=== PATIENT | female | born 1950 | race Hispanic/Latino ===

== ENCOUNTER → 2024-03-20 17:44 | Outpatient (REF) | payer MEDICARE, OTHER, SELFPAY | LOC: PAVMRI 17:44 | PROVIDERS: ATTENDING PHYSICIAN Orthopaedic Surgery; FAMILY PHYSICIAN Family Medicine | DX: M17.11 Unilateral primary osteoarthritis, right knee (principal) | CPT/HCPCS: 73721 ==

== ENCOUNTER → 2024-05-31 11:12 | Outpatient (REF) | payer MEDICARE, OTHER, SELFPAY | LOC: HWRAD 11:12 | PROVIDERS: ATTENDING PHYSICIAN Family Medicine | DX: R55 Syncope and collapse (principal); R07.89 Other chest pain; R00.0 Tachycardia, unspecified | CPT/HCPCS: 93880 ==

== ENCOUNTER → 2024-06-01 08:47 | Outpatient (REF) | payer MEDICARE, OTHER, SELFPAY | LOC: RCS 08:47 | PROVIDERS: ATTENDING PHYSICIAN Family Medicine | DX: R55 Syncope and collapse (principal) | CPT/HCPCS: 93225; 93226 ==

== ENCOUNTER → 2024-06-07 14:50 | Outpatient (REF) | payer MEDICARE, OTHER, SELFPAY | LOC: HWRCS 14:50 | PROVIDERS: ATTENDING PHYSICIAN Family Medicine | DX: R07.89 Other chest pain (principal) | CPT/HCPCS: 93306 ==

== ENCOUNTER → 2024-06-28 12:18 | Outpatient (REF) | payer MEDICARE, OTHER, SELFPAY | LOC: HWEVLT 12:18 | PROVIDERS: ATTENDING PHYSICIAN Radiology Vascular & Interventional Radiology | DX: I83.893 Varicose veins of bilateral lower extremities with other complications (principal) | CPT/HCPCS: 93970 ==

== ENCOUNTER → 2024-07-03 15:20 | Outpatient (REF) | payer MEDICARE, OTHER, SELFPAY | LOC: RCS 15:20 | PROVIDERS: ATTENDING PHYSICIAN Internal Medicine Cardiovascular Disease; FAMILY PHYSICIAN Family Medicine | DX: I63.9 Cerebral infarction, unspecified (principal); I95.1 Orthostatic hypotension; I45.81 Long QT syndrome | CPT/HCPCS: 93306 ==

== ENCOUNTER 2024-07-21 04:14 | Inpatient (IN) | payer MEDICARE, OTHER, SELFPAY ==
[2024-07-20 22:33] VITALS: BP 146/84
[2024-07-20 23:00] LABS: % Basophils 0.1 % (0-2); % Eosinophils 1.6 % (0-6); % Immature Granulocytes 0.5 % (0-0.5); % Lymphocytes 15.1 % (20.5-51.1); % Monocytes 5.5 % (1.7-9.3); % Neutrophils 77.2 % (42.2-75.2); Absolute Eosinophils 0.1 10^3/uL (0-0.7); Absolute Lymphocytes 1.1 10^3/uL (1.2-3.4); Absolute Monocytes 0.4 10^3/uL (0.1-0.6); Absolute Neutrophils 5.8 10^3/uL (1.4-6.5); Hematocrit 32.9 % (37.0-47.0); Hemoglobin 11.1 g/dL (12.0-16.0); Mean Corp Hgb Conc. 33.7 g/dL (33.0-37.0); Mean Corpuscular Hgb 30.8 pg (27.0-31.0); Mean Corpuscular Volume 91.4 fL (81.0-99.0); Mean Platelet Volume 8.6 fL (7.4-10.4); Nucleated Red Blood Cells % 0 %; Platelet Count 288 10^3/uL (130-400); Red Cell Dist. Width 13.6 % (11.5-14.5); White Blood Cell Count 7.5 10^3/uL (4.8-10.8)
[2024-07-20 23:22] LABS: Troponin I < 0.012 ng/ml
[2024-07-20] MEDS: ZOFRAN 4 MG IV (23:24)
[2024-07-20] MEDS: DILAUDID 1 MG IV (23:26)
[2024-07-20] MEDS: NSS 1000 IV (23:27)
[2024-07-20 23:29] VITALS: BMI 24.3
--- NOTE | 2024-07-20 23:35 | ED.GENMED ---
History of Present Illness
General
Chief Complaint: Abdominal Symptoms
Time Seen by Provider: 07/20/24 23:06
History of Present Illness
History of Present Illness:
74-year-old female with history of paraesophageal hernia status post fundoplication, pancreatitis, GERD, fibromyalgia presenting to the emergency department for generalized abdominal pain. Patient reports symptoms started around 7 PM and have been
worsening since onset. Reports associated nausea without vomiting. Last bowel movement was yesterday. Denies additional surgeries to her abdomen other than the surgery for the hernia which was several years ago. Denies chest pain or difficulty
breathing. Denies urinary complaints. Pain has been worsening since onset, reports that it is traveling all across her abdomen. No additional history obtained at this time
Past History
Past History
ED Past Medical History: CVA (Slight left hand weakness), Fibromyalgia, GERD, Hypercholesterolemia, Seizures and Other (DVT, dysphagia, very large hiatal hernia, nephrolithiasis, anemia, chickenpox, measles)
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 Hernia repair, left breast lumpectomy 1999, hernia repair)
Patient has exhibited threatening behavior?: No
PSI?: No
Social History
Tobacco: Non-smoker
Alcohol: None
Drug: None
Personal: Single
Living: alone
Employment: Disabled
Family History
Family History: Other (Reviewed and noncontributory)
Phy Exam
Physical Exam
Physical Exam:
General: Mild dryness to her mucous membranes. Uncomfortable secondary to pain
HEENT: protecting airway
Neck: appears supple
CV: Normal heart rate, regular rhythm
Resp: No accessory muscle use, no increased work of breathing, lungs clear to auscultation bilaterally
Abd: Mild distention with diffuse abdominal tenderness and voluntary guarding
Extremities: No deformities, no swelling
Neuro: alert, no focal neurologic deficit
: deferred
Rectal: deferred
Psych: Normal affect
Skin: Intact
Course
Orders/Labs/Results
Orders:
Orders
07/20/24 22:31
Electrocardiogram (*1) Urgent
Reason for Study: Abdominal Pain
EKG- Treatment ONCE
07/20/24 22:47
Complete Blood Count/With Diff Urgent
Comprehensive Metabolic Panel Urgent
Lipase Urgent
Troponin I Urgent
07/20/24 23:16
0.9% Sodium Chloride 1000 ml [Nss] 1,000 ml IV BOLUS
HYDROmorphone [Dilaudid] 1 mg IV NOW STA
Ondansetron Injectable [Zofran] 4 mg IV NOW STA
07/21/24 00:02
CT Abd/pelvis W Iv Cont Urgent
Reason For Exam: diffuse abdominal pain w/ guarding
07/21/24 00:09
HYDROmorphone [Dilaudid] 1 mg IV NOW STA
07/21/24 01:45
Lactic Acid Q4H
Comment: CANCEL 2nd LACTIC ACID IF 1st LACTIC ACID IS LESS THAN 2
07/21/24 01:49
0.9% Sodium Chloride 1000 ml [Nss] 1,000 ml IV BOLUS
HYDROmorphone [Dilaudid] 1 mg IV NOW STA
07/21/24 05:45
Lactic Acid Q4H
Comment: CANCEL 2nd LACTIC ACID IF 1st LACTIC ACID IS LESS THAN 2
Abnormal Lab Results
07/20/24
22:47
RBC 3.60 L 10^6/uL
(4.20-5.40)
Hgb 11.1 L g/dL
(12.0-16.0)
Hct 32.9 L %
(37.0-47.0)
Absolute Lymphs (auto) 1.1 L 10^3/uL
(1.2-3.4)
Neutrophils % 77.2 H %
(42.2-75.2)
Lymphocytes % 15.1 L %
(20.5-51.1)
BUN 18 H mg/dl
(7-17)
Glucose 121 H mg/dl
(70-99)
AST 40 H U/L
(14-36)
07/20/24 22:47
07/20/24 22:47
Vital Signs
Initial and Last Documented VS:
Initial Vital Signs
Temp Pulse Resp BP Pulse Ox
98.3 F 90 18 146/84 93
07/20/24 22:33 07/20/24 22:33 07/20/24 22:33 07/20/24 22:33 07/20/24 22:33
Last Documented Vital Signs
Temp Pulse Resp BP Pulse Ox
98.3 F 90 18 146/84 93
07/20/24 22:33 07/20/24 22:33 07/20/24 22:33 07/20/24 22:33 07/20/24 22:33
MDM/Problems Addressed
MDM/Problems Addressed:
74-year-old female with history of paraesophageal hernia status post fundoplication, pancreatitis, GERD, fibromyalgia presenting to the emergency department for worsening generalized abdominal pain. Vital signs on arrival are normal.
On exam patient is in no acute distress, however is uncomfortable secondary to pain, diffuse tenderness to the abdomen with voluntary guarding. Concern for acute intra-abdominal process. Differential considerations include pancreatitis versus
diverticulitis, prior history. Possible complicating features such as perforation given patient's discomfort and guarding. For this reason we will obtain laboratory analysis and CT abdominal imaging. Dilaudid, Zofran, fluids administered for
patient's symptoms.
02:00 -CT is consistent with a cecal volvulus with small amount of free fluid. Discussed with general surgery on-call, Dr. Dwayne Burleson. Advises n.p.o. status, will put on schedule for OR this morning. Will continue with pain control. He
will order preop antibiotics. Plan for admission
*Critical Care Note
Total Time (30-74mins, 75-104mins- exclusive of procedures): Not Applicable
ED Attending Note
-
Portions of this chart may have been created with voice recognition software.� Occasional wrong word or��sound alike� substitutions may have occurred due to the inherent limitations of voice recognition software.
Discharge Plan
Departure
Prescriptions:
No Action
cyanocobalamin (vitamin B-12) 1,000 mcg Tablet
1,000 mcg PO DAILY Qty: 0 0RF
rosuvastatin 20 mg Tablet
40 mg PO QPM Qty: 60 0RF
acetaminophen 500 mg Tablet
1,000 mg PO TID PRN (Reason: pain) Qty: 10 0RF
ferrous sulfate 325 mg (65 mg iron) tablet,delayed release (DR/EC)
325 mg PO DAILY AT 0700
cyclobenzaprine 5 mg Tablet
5 mg PO BID
tramadol 50 mg Tablet
50 mg PO TID PRN (Reason: severe pain)
simethicone 80 mg Tablet,Chewable
80 mg PO QIDPRN PRN (Reason: crampy abdo pain) Qty: 28 0RF
amoxicillin-pot clavulanate 875-125 mg tablet
1 tab PO BID Qty: 14 0RF
oxycodone 5 mg tablet
5 mg PO Q4H PRN (Reason: MOD TO SEVERE PAIN) Qty: 14 0RF
meloxicam 7.5 mg tablet
7.5 mg PO DAILY Qty: 14 0RF
Referrals:
UNKNOWN - PT NOT,INTERVIEWE [Family Provider] -
Interventions
Interventions:
*Risk Screen - Suicide Last Done: 07/20/24 22:30
*General Assessment Last Done: 07/20/24 22:30
*Neglect/Abuse Screening Last Done: 07/20/24 22:30
*ED COVID-19 Vaccine History Last Done: 07/20/24 22:30
LR-Fucnen-[id number] Assessment Last Done: 07/20/24 22:30
Discharge Date and Time
Print Language: THAI
[2024-07-20 23:40] LABS: ALT (SGPT) 30 U/L (0-35); AST (SGOT) 40 U/L (14-36); Albumin 4.8 g/dl (3.5-5.0); Alkaline Phosphatase 69 U/L (38-126); Blood Urea Nitrogen 18 mg/dl (7-17); Calcium 8.8 mg/dl (8.4-10.2); Carbon Dioxide 30 mmol/L (22-30); Chloride 99 mmol/L (98-107); Estimated Creatinine Clearance 65 ml/min; Glucose 121 mg/dl (70-99); Lipase 96 U/L (23-300); Potassium 3.9 mmol/L (3.5-5.1); Sodium 141 mmol/L (135-145); Total Bilirubin 0.7 mg/dl (0.2-1.3); Total Protein 7.5 g/dl (6.3-8.2); eGFR > 60.00
[2024-07-21] VITALS (29 sets, daily range): BP systolic 119–162; BP diastolic 57–96; BMI 22.8
[2024-07-21] MEDS: DILAUDID 1 MG IV ×3 (00:16→03:08)
[2024-07-21] MEDS: NSS 1000 IV (02:00)
[2024-07-21 02:22] LABS: Lactic Acid 0.7 mmol/L (0.7-2.0)
--- NOTE | 2024-07-21 03:54 | HPS.HSE ---
Family Physician
-
Family Physician: INTERVIEWE UNKNOWN - PT NOT
Chief Complaint
-
Abd Pain
History of Present Illness
Patient is a 74y F with PMH significant for fibromyalgia and chronic pain who presents to ED complaining of abdominal pain. Patient states that she ate lunch today around 4 PM and her pain started shortly thereafter. She initially noted pain in
the RUQ area which has since spread to involve the entire abdomen. She reports nausea without emesis. She notes pain that has steadily increased in intensity throughout the day. This evening, she took some baking soda and water at home and her
pain significantly increased. 911 was called and patient was brought to the ED for further evaluation.
Imaging done in the ED demonstrates a cecal volvulus.
Patient reports long history of intermittent abdominal discomfort which she has always attributed to her fibromyalgia. Typically these episodes improve with her usual pain management strategies and time.
She states that she has never had an episode this severe.
Medical History
Past Medical History
Past Medical History: Reports Other
Additional Past Medical History:
Fibromyalgia
Dyslipidemia
Varicose Veins / Superficial Thrombophlebitis
Hiatal Hernia / GERD
Seizure +/- CVA (10/2022)
L Wrist Drop / L Hand Weakness secondary to the above
Past Surgical History: Reports Other
Additional Past Surgical History:
HH Repair / Fundoplication
Lumbar Laminectomy
Social History
Tobacco: Non-smoker
Alcohol: Occasional
Drug: None
Family History
Family History: Other (Mother: Cereberal Hemorrhage x 2, Varicose Veins)
Allergies / Home Medications
Allergies reflects when Allergies were last updated in [facility].
Home Medications with original date entered in [facility]
Allergy/Medication List:
Allergies
Allergy/AdvReac Type Severity Reaction Status Date / Time
codeine Allergy LETHARGY Verified 04/04/23 00:46
Home Medications
rosuvastatin 20 mg tablet 40 mg (2 x 20 mg) PO QPM #60 tabs 11/03/22
cyclobenzaprine 5 mg tablet 5 mg PO TID Muscle Spasms 04/04/23
tramadol 50 mg tablet 50 mg PO TID PRN severe pain 04/09/23
pantoprazole 40 mg tablet,delayed release 40 mg PO DAILY 07/21/24
Review of Systems
-
History Source: Patient
A 12 point ROS was completed and negative except as noted: Yes
Constitutional: Reports Fatigue; Denies Fever or Chills
EENT: Denies Sore Throat
Respiratory: Denies Cough or Trouble Breathing
Cardiac: Denies Chest Pain or Palpitations
Abdomen/GI: Reports Abdominal Pain and Nausea; Denies Vomiting, Diarrhea, Constipated, Bloody Stools, Black Stools or Anorexia
: Denies Dysuria, Frequency or Flank Pain
Musculoskeletal: Denies Joint Pain or Edema
Neurological: Denies Dizzy or Headache
Psych: Denies Depression or Anxiety
Physical Exam
Vital Signs
Vital Signs
Temp Pulse Resp BP Pulse Ox
98.3 F 105 34 133/92 97
07/20/24 22:33 07/21/24 02:15 07/21/24 02:15 07/21/24 00:07 07/21/24 02:15
Physical Exam
General: Other (74y F in mild distress due to abdominal pain.)
HEENT: PERRLA and Other (Dry MM.)
Respiratory: Clear; No Wheezes, Rales or Rhonchi
Cardiac: S1/S2, Regular Rhythm and Murmur (II/ ITA)
GI: Other (Abdomen is distended and diffusley tender. Pos voluntary guarding. Bowel sounds are diminished.)
Musculoskeletal: No Clubbing, No Cyanosis and No Edema
Neuro: AO x 3
Laboratory Results
-
07/20/24 22:47
07/20/24 22:47
Laboratory Results
Lactic Acid Cancelled 07/21/24 05:45
Total Bilirubin 0.7 mg/dl (0.2-1.3) 07/20/24 22:47
AST 40 U/L (14-36) H 07/20/24 22:47
ALT 30 U/L (0-35) 07/20/24 22:47
Alkaline Phosphatase 69 U/L (38-126) 07/20/24 22:47
Troponin I < 0.012 ng/ml 07/20/24 22:47
Lipase 96 U/L (23-300) 07/20/24 22:47
Impression/Plan
-
A/P: Patient is a 74y F with PMH significant for GERD / HH s/p fundoplication, fibromyalgia and chronic pain who presents to ED complaining of abdominal pain.
Cecal Volvulus
- Admit for further evaluation and treatment.
- NPO, pain control, IVFs, etc.
- Colorectal Surgery notified and plan is for surgery this AM for repair.
- Post-op care per Surgical team.
- Follow for clinical improvement.
Hiatal Hernia s/p Fundoplication
Esophageal Stenosis
- Patient notes some recent issues with swallow dysfunction / food getting 'stuck'.
- Follow for any new / worsening symptoms once able to take POs / after surgery.
- Continue daily PPI.
Fibromyalgia
- Patient states this is managed with tramadol and cyclobenzaprine at home.
- Not on any fibromyalgia-specific agents.
- Monitor for any increased pain, etc during stay.
DVT Prophylaxis: SCDs
Code Status: Full
--- NOTE | 2024-07-21 05:58 | PTCARENOTE ---
pt admitted to [facility]- immediately called to or- dr bell at bedside- francy meredith [id number]- as much of admission done as possible- periop teaching done by RN and Dr Bell
--- NOTE | 2024-07-21 06:10 | PTCARENOTE ---
pt taken to or - report given
--- NOTE | 2024-07-21 06:12 | CON.CRS ---
Consultation
-
Date/Time Consultation Requested: 07/21/24 @ 5:29
Date/Time Consultation Performed: 07/21/24 @ 2:00
Requesting Provider: Manuelito Adkins DO
Performing Provider: Dwayne Burleson MD
Reason for Consultation: Cecal Volvulus
Medical History
-
Chief Complaint: Abdominal pain
History of Present Illness:
74-year-old female known to me with a history of sigmoid diverticulitis, who presented to the ED last evening with the acute onset of abdominal pain. She has fibromyalgia and chronic pain but shortly after eating lunch she developed intense diffuse
pain at approximately 4 PM. Was initially in the right lower quadrant and now involves entire abdomen. She has some nausea but no vomiting, fevers or chills. She has a history of regular bowels has not passed anything since yesterday. A
colonoscopy in 2021 revealed an elongated, tortuous colon and left-sided diverticular disease. Her only past abdominal surgery was a paraesophageal hernia repair.
Past Medical History
Past Medical History: CVA (2022), GERD, Seizures and Other (Fibromyalgia, varicose veins)
Past Surgical History: Orthopedic (Lumbar laminectomy) and Other (Fundoplication)
Social History
Tobacco: Non-Smoker
Alcohol: Occasional
Drug: None
Personal: Single
Family History
Family History: Reviewed & Not Pertinent
Allergies / Home Medications
Allergy/AdvReac Type Severity Reaction Status Date / Time
codeine Allergy LETHARGY Verified 04/04/23 00:46
�Medication �Instructions �Recorded �Confirmed �Type
rosuvastatin 20 mg tablet 40 mg (2 x 20 mg) PO QPM #60 tabs 11/03/22 07/21/24 Rx
cyclobenzaprine 5 mg tablet 5 mg PO TID Muscle Spasms 04/04/23 07/21/24 History
tramadol 50 mg tablet 50 mg PO TID PRN severe pain 04/09/23 07/21/24 History
pantoprazole 40 mg tablet,delayed 40 mg PO DAILY 07/21/24 07/21/24 History
release
Review of Systems
-
History Source: Patient
All other systems: Negative unless noted
A 10 point review of systems was completed, and was negative except as per HPI.
Physical Exam
Vital Signs
Temp 98.7 F 07/21/24 05:50
Pulse 100 07/21/24 06:00
Resp Rate 15 07/21/24 06:00
Blood pressure 162/96 07/21/24 05:40
SaO2 94 07/21/24 06:00
07/19/24 07/20/24 07/21/24
06:59 06:59 06:59
Actual Weight 56.5 kg
Body Mass Index (BMI) 22.8
Lab Results / Allergies
WBC 7.5 10^3/uL (4.8-10.8) 07/20/24 22:47
Hgb 11.1 g/dL (12.0-16.0) L 07/20/24 22:47
Hct 32.9 % (37.0-47.0) L 07/20/24 22:47
Plt Count 288 10^3/uL (130-400) 07/20/24 22:47
Abs Immat Gran (auto) 0.0 10^3/uL (0-0.05) 07/20/24 22:47
Neutrophils % 77.2 % (42.2-75.2) H 07/20/24 22:47
Allergy/AdvReac Type Severity Reaction Status Date / Time
codeine Allergy LETHARGY Verified 04/04/23 00:46
Physical Exam
General: Well Developed, Well Nourished and Other (Uncomfortable and holding her abdomen)
HEENT: Anicteric
Respiratory: Clear
Cardiac: Regular Rhythm
GI: Soft, Tender (No peritoneal signs; tympany present throughout) and Distended
Skin: Warm
Neuro: Awake and Alert
Psych: Calm
Data Reviewed
-
CT Scan: Image Personally Visualized and interpreted, Report Reviewed by me, Discussed with Nurse and Discussed with Patient
Labs: Labs Reviewed by me, Discussed with Nurse and Discussed with Patient
Assessment / Plan
-
Cecal volvulus
I reviewed the current findings and treatment options. I explained that colonic detorsion is usually unsuccessful as surgery is recommended before a perforation. Without treatment the cecum will continue to distend and rupture causing sepsis.
Surgery is performed in open fashion and involves the resection of the right colon including the appendix. If the bowel is viable a cecopexy can be considered with the recurrence rate is often higher when compared to resection. Risks of resection
include, but are not limited to, bleeding, infection, adhesions, hernias, recurrence, and anastomotic leak (which could require further surgery), injury other structures, DVT, cardiopulmonary complications, CVA, and even . I reviewed the
typical recovery both in and out of the hospital as well as the functional results. All questions answered and she wishes to proceed. Informed consent obtained and arrangements are in progress with the operating room.
--- NOTE | 2024-07-21 07:53 | SUR.PHASEI ---
Rec'd sleepy in bed with HOB elevated low fowlers, oriented x3, reassured carrillo to bds cl yellow urine
--- NOTE | 2024-07-21 08:04 | SUR.PHASEI ---
More alert, occ moist no prod cough noted encouraged to hold abd, hug pillow given , pillow uncder knees, chris well
[2024-07-21] MEDS: TORADOL 15 MG IV ×3 (08:31→19:49)
[2024-07-21] MEDS: DILAUDID 0.5 MG IV ×5 (08:34→21:49)
[2024-07-21] MEDS: LR 1000 IV ×2 (08:50→18:54)
[2024-07-21] MEDS: DILAUDID 0.25 MG IV (08:51)
[2024-07-21] MEDS: NSS (PRESERVATIVE FREE) 10 ML IV (09:03)
[2024-07-21] MEDS: PROTONIX IV 40 MG IV (09:03)
[2024-07-21 09:05] LABS: Hematocrit 30.3 % (37.0-47.0); Hemoglobin 10.1 g/dL (12.0-16.0); Mean Corp Hgb Conc. 33.3 g/dL (33.0-37.0); Mean Corpuscular Hgb 32.1 pg (27.0-31.0); Mean Corpuscular Volume 96.2 fL (81.0-99.0); Mean Platelet Volume 8.5 fL (7.4-10.4); Platelet Count 248 10^3/uL (130-400); Red Blood Cell Count 3.15 10^6/uL (4.20-5.40); Red Cell Dist. Width 13.7 % (11.5-14.5); White Blood Cell Count 6.3 10^3/uL (4.8-10.8)
[2024-07-21 09:23] LABS: Blood Urea Nitrogen 10 mg/dl (7-17); Calcium 8.1 mg/dl (8.4-10.2); Carbon Dioxide 29 mmol/L (22-30); Chloride 102 mmol/L (98-107); Estimated Creatinine Clearance 65 ml/min; Glucose 110 mg/dl (70-99); Potassium 3.5 mmol/L (3.5-5.1); Sodium 143 mmol/L (135-145); eGFR > 60.00
--- NOTE | 2024-07-21 09:29 | PTCARENOTE ---
Pt received from PACU. Oriented X3, drowsy. VSS. Sating mid 90's on 2L NC. Midline abdominal dressing with scant drainage, marked by PACU nurse. IVF infusing as ordered. Call giang within reach.
--- NOTE | 2024-07-21 09:49 | W.PN.HOSP.TC ---
Today's Communication/Plan
-
see bold
Assessment / Plan
Assessment / Plan
74y F with PMH significant for GERD / HH s/p fundoplication, fibromyalgia and chronic pain who presents to ED complaining of abdominal pain.
Gen: NAD, AAOx3.
Eyes: EOMI, PERRLA, no scleral icterus.
Neck: supple.
CV: RRR, +S1/S2, no m/r/g.
Resp: CTAB, no rales, wheezes, or rhonchi.
Abd: hypoactive BS, soft, NT to light palpation, ND
Skin: No rashes.
Neuro: CN 2-12 intact, non-focal.
Psych: Normal mood and affect.
Cecal Volvulus
-s/p OR this AM by CRS
-NPO, pain control, IVFs
Hiatal Hernia s/p Fundoplication
Esophageal Stenosis
- Patient notes some recent issues with swallow dysfunction / food getting 'stuck'.
- Follow for any new / worsening symptoms once able to take POs / after surgery.
- Continue daily PPI.
Fibromyalgia
- Patient states this is managed with tramadol and cyclobenzaprine at home.
- Not on any fibromyalgia-specific agents.
- Monitor for any increased pain, etc during stay.
FULL/SCDs
Anticipated Discharge: > 48 hours
Subjective/Interval History
-
Date of Service: July 21, 2024
No new complaints.
Objective Data
-
Labs:
Laboratory Results
07/20/24 07/21/24
22:47 08:47
WBC 7.5 6.3
Hgb 11.1 L 10.1 L
Hct 32.9 L 30.3 L
Plt Count 288 248
Sodium 141 143
Potassium 3.9 3.5
Chloride 99 102
Carbon Dioxide 30 29
BUN 18 H 10
Creatinine 0.6 0.5 L
Glucose 121 H 110 H
Calcium 8.8 8.1 L
Total Bilirubin 0.7
AST 40 H
ALT 30
Alkaline Phosphatase 69
Vital Signs:
Vital Signs
Temp Pulse Resp BP Pulse Ox
99.5 F 99 16 124/76 96
07/21/24 09:00 07/21/24 09:00 07/21/24 09:00 07/21/24 09:00 07/21/24 09:00
I&O
07/20/24 07/21/24 07/22/24
06:59 06:59 06:59
Intake Total 300 / 300
Output Total 500 / 500
Balance -200 / -200
[2024-07-21] MEDS: TYLENOL PO (11:03)
[2024-07-21] MEDS: TYLENOL 650 MG PO ×3 (11:27→19:49)
--- NOTE | 2024-07-21 16:41 | CHAP ---
Called by nurse for Adeola, who is a devout Roman Catholic. Assured her that the [facility] would be available Tuesday to provide Communion. Talked with her about her situation, and provided emotional and spiritual support. She expressed
appreciation for the visit and prayer. Will continue to follow, as able.
[2024-07-21] MEDS: ZOFRAN 4 MG IV (21:53)
[2024-07-22] VITALS (14 sets, daily range): BP systolic 115–140; BP diastolic 67–89; PULSE 90; O2SAT 96; BMI 23.4
--- NOTE | 2024-07-22 00:20 | PTCARENOTE ---
ax3 pain controlled with prn's and scheduled meds- see dec- 2 liters o2-midline abd dsg with small amt of shading- tolerating sips of clears and ice chips- carrillo draining clear yellow- sinus afebrile bp wnl
[2024-07-22] MEDS: TYLENOL 650 MG PO ×7 (00:44→23:53)
[2024-07-22] MEDS: DILAUDID 0.5 MG IV ×6 (00:44→20:18)
[2024-07-22] MEDS: TORADOL 15 MG IV ×4 (02:37→19:39)
[2024-07-22] MEDS: LR 1000 IV ×3 (02:37→21:30)
[2024-07-22] MEDS: ZOFRAN 4 MG IV (03:50)
--- NOTE | 2024-07-22 03:55 | PTCARENOTE ---
Addendum entered by Yunior Cornejo RN 07/22/24 04:00:
had to re apply 2 liters - pt was 85% on room air
Original Note:
weaned to room air-
[2024-07-22 04:39] LABS: % Basophils 0.2 % (0-2); % Eosinophils 0.4 % (0-6); % Immature Granulocytes 0.6 % (0-0.5); % Monocytes 10.8 % (1.7-9.3); Absolute Lymphocytes 1.4 10^3/uL (1.2-3.4); Absolute Monocytes 0.6 10^3/uL (0.1-0.6); Absolute Neutrophils 3.3 10^3/uL (1.4-6.5); Hematocrit 26.9 % (37.0-47.0); Hemoglobin 9.1 g/dL (12.0-16.0); Mean Corp Hgb Conc. 33.8 g/dL (33.0-37.0); Mean Corpuscular Hgb 31.2 pg (27.0-31.0); Mean Corpuscular Volume 92.1 fL (81.0-99.0); Mean Platelet Volume 8.9 fL (7.4-10.4); Nucleated Red Blood Cells % 0 %; Platelet Count 237 10^3/uL (130-400); Red Blood Cell Count 2.92 10^6/uL (4.20-5.40); Red Cell Dist. Width 13.8 % (11.5-14.5); White Blood Cell Count 5.3 10^3/uL (4.8-10.8)
[2024-07-22 05:03] LABS: Blood Urea Nitrogen 11 mg/dl (7-17); Calcium 8.6 mg/dl (8.4-10.2); Carbon Dioxide 29 mmol/L (22-30); Chloride 104 mmol/L (98-107); Estimated Creatinine Clearance 65 ml/min; Glucose 90 mg/dl (70-99); Potassium 3.8 mmol/L (3.5-5.1); Sodium 141 mmol/L (135-145); eGFR > 60.00
--- NOTE | 2024-07-22 07:52 | PTCARENOTE ---
Assumed care of patient this AM. Patient resting comfortably in bed. AAOX3, call giang in reach. Reports pain rating 6-7/10 at abdominal incision site. Medicated with pain medicine as ordered, working well for patient pain relief. Dressing intact
with old shadowing noted. Abdomen distended. O2 via n/c to keep sats>92%. IS at bedside, patient using frequently. VS stable. Will continue to monitor.
--- NOTE | 2024-07-22 08:16 | W.PN.HOSP.TC ---
Today's Communication/Plan
-
clears
Assessment / Plan
Assessment / Plan
74y F with PMH significant for GERD / HH s/p fundoplication, fibromyalgia and chronic pain who presents to ED complaining of abdominal pain.
Gen: remains NAD, AAOx3.
Eyes: EOMI, PERRLA, no scleral icterus.
Neck: supple.
CV: RRR, +S1/S2, no m/r/g.
Resp: CTAB, no rales, wheezes, or rhonchi.
Abd: +BS, soft, diffuse tenderness to light palpation, ND
Skin: No rashes.
Neuro: CN 2-12 intact, non-focal.
Psych: Normal mood and affect.
Cecal Volvulus
-s/p open R colectomy 07/21/24AM by Dr. Burleson
-pain control, IVFs
-advance to clears as per discussion with Dr. Burleson
Hiatal Hernia s/p Fundoplication
Esophageal Stenosis
- Patient notes some recent issues with swallow dysfunction / food getting 'stuck'.
- Follow for any new / worsening symptoms once able to take POs / after surgery.
- Continue daily PPI.
Fibromyalgia
- Patient states this is managed with tramadol and cyclobenzaprine at home.
- Not on any fibromyalgia-specific agents.
- Monitor for any increased pain, etc during stay.
FULL/SCDs
Anticipated Discharge: > 48 hours
Subjective/Interval History
-
Date of Service: July 22, 2024
Passing flatus. c/o abd pain.
Objective Data
-
Labs:
Laboratory Results
07/22/24
04:07
WBC 5.3
Hgb 9.1 L
Hct 26.9 L
Plt Count 237
Sodium 141
Potassium 3.8
Chloride 104
Carbon Dioxide 29
BUN 11
Creatinine 0.6
Glucose 90
Calcium 8.6
Vital Signs:
Vital Signs
Temp Pulse Resp BP Pulse Ox
98.9 F 87 18 136/74 97
07/22/24 03:01 07/22/24 06:00 07/22/24 06:00 07/22/24 06:00 07/22/24 06:00
I&O
07/21/24 07/22/24 07/23/24
06:59 06:59 06:59
Intake Total 1620 / 1620
Output Total 1575 / 1575
Balance 45 / 45
[2024-07-22] MEDS: PROTONIX IV 40 MG IV (09:01)
[2024-07-22] MEDS: NSS (PRESERVATIVE FREE) 10 ML IV (09:01)
--- NOTE | 2024-07-22 11:31 | CHAP ---
A contract clerk automobile from [facility] in [place] anointed Adeola at her request. Time uncertain.
--- NOTE | 2024-07-22 11:37 | W.PN.CRS1 ---
Today's Communication / Plan
-
clears
oob
lovenox
Assessment/Plan
-
POD#1 Exploratory laparotomy with right colectomy and primary anastomosis
-Hgb 9.1 from 10.1. Vitals normal.
-OOB with PT
-Advance diet to clears
-D/C carrillo
-Start lovenox for dvt prophylaxis.
-Pain control: Tylenol standing, Diludid PRN
-OR pathology pending
Subjective Data
Procedure
07/21- Exploratory laparotomy with right colectomy and primary anastomosis.
Subjective Data
Date of Service: July 22, 2024
Patient states she has some pain. She is burping intermittently. She has no nausea or vomiting. She has not had a bowel movement yet. She has flatus.
Objective Data
-
Vital Signs
Temp Pulse Resp BP Pulse Ox
98.4 F 89 17 115/69 98
07/22/24 07:05 07/22/24 10:00 07/22/24 10:00 07/22/24 10:00 07/22/24 10:00
Intake & Output
07/21/24 07/22/24 07/23/24
06:59 06:59 06:59
Intake Total 1620 / 1620 60 / 60
Output Total 1575 / 1575 775 / 775
Balance 45 / 45 -715 / -715
Intake:
Oral fluids 120 / 120 60 / 60
IV fluids (Total) 1500 / 1500
Normosal 300 / 300
Output:
Urine, Carrillo 1575 / 1575
Urine, Voided 775 / 775
Lab Results
07/22/24 04:07
07/22/24 04:07
Physical Exam
-
General: No Acute Distress and AOx3
Abdomen: Soft, Non Distended and Tender (around incisions)
Skin: Warm and Dry
Incision: Clear, Dry, Intact
[2024-07-22] MEDS: LOVENOX 40 MG SC (17:03)
--- NOTE | 2024-07-22 18:42 | PTCARENOTE ---
Patient tolerating clear liquid diet. Patient continues to report abdominal pain. Medicating with pain meds as ordered. Patient worked with PT today and sat out of bed to chair for several hours. Assist x1 back to bed. VS stable,afebrile.
--- NOTE | 2024-07-22 20:00 | PTCARENOTE ---
Patient received in bed, AAOx3. NSR on monitor, afebrile, blood pressure as documented. Palpable pulses throughout, no edema noted. Knee high teds/scds maintained. Lungs clear, pulse ox 99% on 2L. Shallow respirations noted. Deep breathing
encouraged. Abdomen softly distended with positive bowel sounds, + flatus, no nausea. Renee catheter draining large amounts of clear yellow urine. Midline primaseal dressing with moderate amount of old drainage noted. #20 g in left wrist with
IVF infusing as ordered. Call giang within reach
[2024-07-23] VITALS (11 sets, daily range): BP systolic 120–153; BP diastolic 69–86; PULSE 88; O2SAT 99; BMI 23.2
[2024-07-23] MEDS: TORADOL 15 MG IV ×4 (01:07→19:44)
[2024-07-23] MEDS: DILAUDID 0.5 MG IV ×3 (04:00→12:20)
[2024-07-23] MEDS: TYLENOL 650 MG PO ×6 (04:00→23:40)
[2024-07-23] MEDS: LR 1000 IV (06:15)
[2024-07-23] MEDS: NSS (PRESERVATIVE FREE) 10 ML IV (08:14)
[2024-07-23] MEDS: PROTONIX IV 40 MG IV (08:15)
--- NOTE | 2024-07-23 08:40 | PTCARENOTE ---
Removed carrillo catheter at this time. Patient on time and amount. IV fluids d/c as per colorectal.
--- NOTE | 2024-07-23 09:20 | CM ---
Late note from 07/22/2024:
CM met with Adeola at bedside. IA completed, s/p open R colectomy.
Adeola lives with her significant other in a 2 story home with 2 entry steps. Bedroom is on the second level with 12 steps to climb. She has a bathroom on both levels.
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
Home Care recommended; known to [facility] in the past. Bonnie Pereira notified of needs/referral.
CM to follow post-op to identify and assist with any discharge planning needs.
PCP: Pt unsure at time of interview
Pharmacy: [facility]
--- NOTE | 2024-07-23 09:40 | W.PN.HOSP.TC ---
Today's Communication/Plan
-
Stable for med surg
Assessment / Plan
Assessment / Plan
74y F with PMH significant for GERD / HH s/p fundoplication, fibromyalgia and chronic pain who presents to ED complaining of abdominal pain.
Cecal Volvulus
-s/p open R colectomy 07/21/ AM by Dr. Burleson
-pain control, IVFs
-Advance to full liquids today as per colorectal surgery
Hiatal Hernia s/p Fundoplication
Esophageal Stenosis
- Patient notes some recent issues with swallow dysfunction / food getting 'stuck'.
- Follow for any new / worsening symptoms once able to take POs / after surgery.
- Continue daily PPI.
Fibromyalgia
- Patient states this is managed with tramadol and cyclobenzaprine at home.
- Not on any fibromyalgia-specific agents.
- Monitor for any increased pain, etc during stay.
DVT prophylaxis�subcu Lovenox
Full code
Total time spent to see the patient on the floor, examine the patient, review data and lab results, discuss treatment plan with patient, nursing staff around 39 minutes.
Physical exam
Gen: remains NAD, AAOx3.
Eyes: EOMI, PERRLA, no scleral icterus.
Neck: supple.
CV: RRR, +S1/S2, no m/r/g.
Resp: CTAB, no rales, wheezes, or rhonchi.
Abd: +BS, soft, diffuse tenderness to light palpation, ND
Skin: No rashes.
Neuro: CN 2-12 intact, non-focal.
Psych: Normal mood and affect.
Anticipated Discharge: 24 - 48 hours
Subjective/Interval History
-
Date of Service: July 23, 2024
Patient complains of abdominal pain. She reports feeling nauseous after having some clear liquids. No fever, no vomiting. She has passed gas, no stool.
Objective Data
-
Vital Signs:
Vital Signs
Temp Pulse Resp BP Pulse Ox
98.2 F 85 22 142/71 99
07/23/24 07:05 07/23/24 06:00 07/23/24 06:00 07/23/24 06:00 07/23/24 06:00
I&O
07/22/24 07/23/24 07/24/24
06:59 06:59 06:59
Intake Total 1620 / 1620 1260 / 1260
Output Total 1575 / 1575 4275 / 4275 1200 / 1200
Balance 45 / 45 -3015 / -3015 -1200 / -1200
--- NOTE | 2024-07-23 09:55 | VNURNOTE ---
Home Health Liaison spoke with patient's sig annie Blake. Discussed [facility] nurse/therapy, visits, schedule and homebound status. Sig other is agreeable and understands that visits at home will be 2-3 x per week to assess and teach medical management.
Inquired about PCP. Hayden believes PCP is Dr Flowers and patient has seen her within the past year. Sig other aware that [facility] will contact them for start of care in 1-2 days after discharge from . [facility] referral completed in [facility].
[2024-07-23] MEDS: ATIVAN 0.5 MG PO ×2 (11:19→17:04)
--- NOTE | 2024-07-23 11:22 | W.PN.CRS1 ---
Today's Communication / Plan
-
Full liquids
DC Renee
Ativan as needed
Assessment/Plan
-
POD# 2 exploratory laparotomy with right colectomy and primary anastomosis
-Vitals normal.
-OOB with PT
-Advance diet to full liquids
-DC IV fluids
-DC Renee
-Ativan as needed for anxiety
-Teds and SCDs in place, Lovenox for DVT prophylaxis
-Pain control: Tylenol standing, Diludid PRN
-OR pathology pending
Subjective Data
Procedure
07/21- Exploratory laparotomy with right colectomy and primary anastomosis.
Subjective Data
Date of Service: July 23, 2024
Patient states she had some nausea overnight. She has left-sided abdominal pain. She has flatus. She is anxious.
Objective Data
-
Vital Signs
Temp Pulse Resp BP Pulse Ox
98.2 F 77 11 120/69 100
07/23/24 07:05 07/23/24 10:00 07/23/24 10:00 07/23/24 10:00 07/23/24 10:00
Intake & Output
07/22/24 07/23/24 07/24/24
06:59 06:59 06:59
Intake Total 1620 / 1620 1260 / 1260
Output Total 1575 / 1575 4275 / 4275 1200 / 1200
Balance 45 / 45 -3015 / -3015 -1200 / -1200
Intake:
Oral fluids 120 / 120 60 / 60
IV fluids (Total) 1500 / 1500 1200 / 1200
Normosal 300 / 300
Output:
Urine, Renee 1575 / 1575 4275 / 4275 1200 / 1200
Lab Results
07/22/24 04:07
07/22/24 04:07
Physical Exam
-
General: No Acute Distress and AOx3
Abdomen: Soft, Non Distended and Non Tender
Skin: Warm and Dry
Incision: Clear, Dry, Intact
--- NOTE | 2024-07-23 13:50 | PTCARENOTE ---
Patient out of bed to chair. Voided 490 mls clear yellow urine in bathroom. Tolerating full liquid diet. Patient reports severe pain at incision state. Medicating patient with pain medication as ordered. VS stable. Patient transferred to
[facility]-surgical level of care.
[2024-07-23] MEDS: ROXICODONE 10 MG PO ×3 (13:53→23:40)
[2024-07-23] MEDS: FLUSH (NSS) 2 FLUSH IV (13:54)
[2024-07-23] MEDS: LOVENOX 40 MG SC (17:04)
[2024-07-24 01:58] VITALS: BMI 23.2
[2024-07-24] MEDS: TORADOL IV (03:09)
[2024-07-24] MEDS: TYLENOL 650 MG PO ×5 (04:15→23:33)
[2024-07-24] MEDS: ROXICODONE 10 MG PO ×5 (04:15→23:33)
--- NOTE | 2024-07-24 04:57 | PTCARENOTE ---
no acute events overnight, pt remains med surg level of care. pt with 05/26 pain to surgical site, medicated with PRN meds per DEC. pt reports some relief with meds. pt also reports flatus and belching without issues, no BM yet. tolerating full
liquids. care ongoing.
[2024-07-24 05:13] LABS: Hematocrit 30.8 % (37.0-47.0); Hemoglobin 10.2 g/dL (12.0-16.0); Mean Corp Hgb Conc. 33.1 g/dL (33.0-37.0); Mean Corpuscular Hgb 31.5 pg (27.0-31.0); Mean Corpuscular Volume 95.1 fL (81.0-99.0); Mean Platelet Volume 8.8 fL (7.4-10.4); Platelet Count 288 10^3/uL (130-400); Red Blood Cell Count 3.24 10^6/uL (4.20-5.40); Red Cell Dist. Width 13.3 % (11.5-14.5); White Blood Cell Count 3.9 10^3/uL (4.8-10.8)
[2024-07-24 05:25] LABS: Blood Urea Nitrogen 8 mg/dl (7-17); Carbon Dioxide 31 mmol/L (22-30); Chloride 100 mmol/L (98-107); Estimated Creatinine Clearance 65 ml/min; Glucose 86 mg/dl (70-99); Magnesium 1.9 mg/dl (1.6-2.3); Phosphorus 4.7 mg/dl (2.5-4.5); Potassium 3.6 mmol/L (3.5-5.1); Sodium 143 mmol/L (135-145); eGFR > 60.00
[2024-07-24 07:33] VITALS: BP 128/80
[2024-07-24] MEDS: PROTONIX IV 40 MG IV (07:48)
[2024-07-24] MEDS: NSS (PRESERVATIVE FREE) 10 ML IV (07:49)
[2024-07-24] MEDS: TORADOL 15 MG IV ×3 (07:49→19:28)
--- NOTE | 2024-07-24 08:22 | PN.CDI ---
CDI
- -
CDI:
Physician Documentation Request
Admit Date: 07/21/24 04:14
Dear Doctor Do,
Please review the following and provide your response in the progress notes.
Clinical Indicators:
- 10/5 H&P pmh fibromyalgia
- Home med tramadol 50mg TID PRN
- / PN 'Fibromyalgia...managed with tramadol and cyclobenzaprine at home'
- Hyromorphone given x 19
- Oxycodone given x 5
If possible, please provide further specificity as outlined below:
Opioid use with dependence
Opioid dependence
Other
Use of terms such as suspected, likely, concern for, or probable (associated with a specific diagnosis that is being evaluated, monitored, or treated as if it exists) are acceptable and can be coded in the inpatient setting, when documented at the
time of discharge.
Thank you,
Rogers Gomez RN
CDI Specialist
Please use your independent medical judgment in providing your response.
--- NOTE | 2024-07-24 08:58 | W.PN.HOSP.TC ---
Today's Communication/Plan
-
see bold
Assessment / Plan
Assessment / Plan
74y F with PMH significant for GERD / HH s/p fundoplication, fibromyalgia and chronic pain who presents to ED complaining of abdominal pain.
Cecal Volvulus
-s/p open R colectomy 07/21/ AM by Dr. Burleson
-pain control, IVFs
-Advance to low residue diet today as per colorectal surgery
Hiatal Hernia s/p Fundoplication
Esophageal Stenosis
- Patient notes some recent issues with swallow dysfunction / food getting 'stuck'.
- Continue daily PPI, f/u w/ Dr. Lopez Do outpt
Fibromyalgia
Chronic opioid use with dependency
- Patient states this is managed with tramadol and cyclobenzaprine at home.
- Not on any fibromyalgia-specific agents.
DVT prophylaxis�subcu Lovenox
Full code
Total time spent to see the patient on the floor, examine the patient, review data and lab results, discuss treatment plan with patient, nursing staff around 38 minutes.
Physical exam
Gen: remains NAD, AAOx3.
Eyes: EOMI, PERRLA, no scleral icterus.
Neck: supple.
CV: RRR, +S1/S2, no m/r/g.
Resp: CTAB, no rales, wheezes, or rhonchi.
Abd: +BS, soft, diffuse tenderness to light palpation, ND
Skin: No rashes.
Neuro: CN 2-12 intact, non-focal.
Psych: Normal mood and affect.
Anticipated Discharge: Within 24 hours
Subjective/Interval History
-
Date of Service: July 24, 2024
Patient complains of abdominal pain, currently 6 in intensity. It was 8 before her pain medications. No nausea, no vomiting. She is passing gas, no stool. No fever.
Objective Data
-
Labs:
Laboratory Results
07/24/24
04:30
WBC 3.9 L
Hgb 10.2 L
Hct 30.8 L
Plt Count 288 D
Sodium 143
Potassium 3.6
Chloride 100
Carbon Dioxide 31 H
BUN 8
Creatinine 0.5 L
Glucose 86
Calcium 9.0
Vital Signs:
Vital Signs
Temp Pulse Resp BP Pulse Ox
99.3 F 88 18 128/80 97
07/24/24 07:33 07/24/24 07:33 07/24/24 07:33 07/24/24 07:33 07/24/24 07:33
I&O
07/23/24 07/24/24 07/25/24
06:59 06:59 06:59
Intake Total 1260 / 1260 1750 / 1750
Output Total 4275 / 4275 2790 / 2790
Balance -3015 / -3015 -1040 / -1040
--- NOTE | 2024-07-24 11:22 | W.PN.CRS1 ---
Today's Communication / Plan
-
low residue diet
Assessment/Plan
-
POD#3 exploratory laparotomy with right colectomy and primary anastomosis
-Vitals normal.
-OOB with PT
-Advance diet to low residue
-Ativan as needed for anxiety
-Teds and SCDs in place, Lovenox for DVT prophylaxis
-Pain control: Tylenol standing, Diludid PRN
-OR pathology pending
Subjective Data
Procedure
07/21- Exploratory laparotomy with right colectomy and primary anastomosis.
Subjective Data
Date of Service: July 24, 2024
Patient states she feels 'okay'. The ativan has been helping her. She has no nausea or vomiting. She has lots of flatus. She has not had a bowel movement yet.
Objective Data
-
Vital Signs
Temp Pulse Resp BP Pulse Ox
99.3 F 88 18 128/80 97
07/24/24 07:33 07/24/24 07:33 07/24/24 07:33 07/24/24 07:33 07/24/24 07:33
Intake & Output
07/23/24 07/24/24 07/25/24
06:59 06:59 06:59
Intake Total 1260 / 1260 1750 / 1750
Output Total 4275 / 4275 2790 / 2790 400 / 400
Balance -3015 / -3015 -1040 / -1040 -400 / -400
Intake:
Oral fluids 60 / 60 1550 / 1550
IV fluids (Total) 1200 / 1200 200 / 200
Output:
Urine, Renee 4275 / 4275 1500 / 1500
Urine, Voided 1290 / 1290 400 / 400
Other:
Number of approximated MODERATE 1
amounts of urine
Lab Results
07/24/24 04:30
07/24/24 04:30
Physical Exam
-
General: No Acute Distress and AOx3
Abdomen: Soft, Non Distended and Tender (mild around incisions)
Skin: Warm and Dry
Incision: Clear, Dry, Intact
[2024-07-24] MEDS: ZOFRAN 4 MG IV (13:22)
--- NOTE | 2024-07-24 13:51 | PTCARENOTE ---
Pain 03/26 abdomen- has received Tylenol/ Roxycodone 10mg x2 this shift with 'relief' per pt however remains a constant 03/26. Using IS appropriately. OOB in recliner - ambulates to the bathroom. Using Hug me pillow to the abdomen. Dressing intact
with small amt drainage shadowing. Report to Jacqueline and as she was being packed up she had some dry heaving- no emesis noted. IV Zofran administered. Resolved and transported to [facility] via stretcher.
[2024-07-24 14:15] VITALS: BP 144/82
[2024-07-24] MEDS: TYLENOL PO (17:30)
[2024-07-24] MEDS: LOVENOX 40 MG SC (17:33)
[2024-07-24 19:32] VITALS: BP 133/80
[2024-07-24] MEDS: DILAUDID 0.5 MG IV (22:22)
[2024-07-24 23:32] VITALS: BP 114/73
[2024-07-25] MEDS: TORADOL 15 MG IV ×4 (02:04→20:54)
[2024-07-25] MEDS: ZOFRAN 4 MG IV (02:07)
[2024-07-25] MEDS: TYLENOL PO (04:31)
[2024-07-25 06:00] VITALS: BMI 22.4
--- NOTE | 2024-07-25 07:31 | W.PN.HOSP.TC ---
Today's Communication/Plan
-
see bold
Assessment / Plan
Assessment / Plan
74y F with PMH significant for GERD / HH s/p fundoplication, fibromyalgia and chronic pain who presents to ED complaining of abdominal pain.
Cecal Volvulus
-s/p open R colectomy 07/21/[address] Burleson
-pain control
-Tolerating low residue diet, await return of bowel function, no BM yet
-PT rec HH
Hiatal Hernia s/p Tonio Fundoplication
Esophageal Stenosis
- Patient notes some recent issues with swallow dysfunction / food getting 'stuck'.
- Continue daily PPI, f/u w/ GI Dr. Lopez Do outpt
Fibromyalgia
Chronic opioid use with dependency
- Patient states this is managed with tramadol and cyclobenzaprine at home.
- Not on any fibromyalgia-specific agents.
DVT prophylaxis�subcu Lovenox
Full code
Total time spent to see the patient on the floor, examine the patient, review data and lab results, discuss treatment plan with patient, nursing staff around 41 minutes.
Physical exam
Gen: remains NAD, AAOx3.
Eyes: EOMI, PERRLA, no scleral icterus.
Neck: supple.
CV: RRR, +S1/S2, no m/r/g.
Resp: CTAB, no rales, wheezes, or rhonchi.
Abd: +BS, soft, diffuse tenderness to light palpation, ND, incision dressed
Skin: No rashes.
Neuro: CN 2-12 intact, non-focal.
Psych: Normal mood and affect.
Anticipated Discharge: 24 - 48 hours
Subjective/Interval History
-
Date of Service: July 25, 2024
Complains of christi-incisional abdominal pain. She has been passing some gas, no bowel movement. No nausea, no vomiting. No fever. No chest pain, no shortness of breath.
Objective Data
-
Vital Signs:
Vital Signs
Temp Pulse Resp BP Pulse Ox
98.6 F 90 17 114/73 97
07/24/24 23:32 07/24/24 23:32 07/24/24 23:32 07/24/24 23:32 07/24/24 23:32
I&O
07/24/24 07/25/24 07/26/24
06:59 06:59 06:59
Intake Total 1750 / 1750 0 / 0
Output Total 2790 / 2790 800 / 800
Balance -1040 / -1040 -800 / -800
[2024-07-25 08:03] VITALS: BP 134/67
[2024-07-25] MEDS: NSS (PRESERVATIVE FREE) 10 ML IV (09:36)
[2024-07-25] MEDS: PROTONIX IV 40 MG IV (09:36)
[2024-07-25] MEDS: TYLENOL 650 MG PO ×4 (09:37→20:54)
--- NOTE | 2024-07-25 09:51 | W.PN.CRS1 ---
Today's Communication / Plan
-
Pain control
Continue low residue diet
Assessment/Plan
-
POD# 4 exploratory laparotomy with right colectomy and primary anastomosis
-Vitals normal.
-OOB with PT
-Continue low residue diet
-Ativan as needed for anxiety
-Teds and SCDs in place, Lovenox for DVT prophylaxis
-Pain control: Tylenol standing, Diludid PRN
-OR pathology pending
-Likely discharge tomorrow given pain
Subjective Data
Procedure
07/21- Exploratory laparotomy with right colectomy and primary anastomosis.
Subjective Data
Date of Service: July 25, 2024
Patient is still complaining of some pain around her incision. She states that she has not had any bowel movements yet but she does have flatus. She tolerated a diet. She does not have nausea or vomiting.
Objective Data
-
Vital Signs
Temp Pulse Resp BP Pulse Ox
99.1 F 89 18 134/67 98
07/25/24 08:03 07/25/24 08:03 07/25/24 08:03 07/25/24 08:03 07/25/24 08:03
Intake & Output
07/24/24 07/25/24 07/26/24
06:59 06:59 06:59
Intake Total 1750 / 1750 0 / 0
Output Total 2790 / 2790 800 / 800
Balance -1040 / -1040 -800 / -800
Intake:
Oral fluids 1550 / 1550 0 / 0
IV fluids (Total) 200 / 200
Output:
Urine, Renee 1500 / 1500
Urine, Voided 1290 / 1290 800 / 800
Other:
Number of approximated MODERATE 1
amounts of urine
Lab Results
07/24/24 04:30
07/24/24 04:30
Physical Exam
-
General: No Acute Distress and AOx3
Abdomen: Soft, Non Distended and Tender (Near the umbilicus and incision)
Skin: Warm and Dry
Incision: Clear, Dry, Intact
[2024-07-25 13:55] VITALS: BP 149/86; PULSE 93
[2024-07-25 15:48] VITALS: BP 146/88
[2024-07-25 16:05] VITALS: BP 146/88; PULSE 99; O2SAT 100
[2024-07-25] MEDS: ROXICODONE 5 MG PO (17:54)
[2024-07-25] MEDS: LOVENOX 40 MG SC (17:57)
--- NOTE | 2024-07-25 17:58 | CM ---
ROBERT met with Adeola again today. She continues with incisional pain from surgery and coughing makes it worse. She is aware to 'hug' her abdomen to help alleviate some of the pain. Support offered.
Adeola anticipates discharge to home when she is medically ready. Known to [facility] and being followed for homecare services at discharge.
[2024-07-25 23:13] VITALS: BP 143/79
[2024-07-26] MEDS: TYLENOL PO (01:12)
[2024-07-26] MEDS: TORADOL 15 MG IV (02:34)
[2024-07-26] MEDS: TYLENOL 650 MG PO ×5 (02:34→20:39)
[2024-07-26 05:49] VITALS: BMI 22.2
[2024-07-26 07:58] VITALS: BP 146/98
[2024-07-26] MEDS: NSS (PRESERVATIVE FREE) 10 ML IV (08:10)
[2024-07-26] MEDS: DILAUDID 0.5 MG IV ×3 (08:11→21:36)
[2024-07-26] MEDS: PROTONIX IV 40 MG IV (08:11)
--- NOTE | 2024-07-26 09:02 | W.PN.HOSP.TC ---
Today's Communication/Plan
-
N.p.o.
Urgent abdominal x-rays ordered
IV antiemetics, IV Ativan
Assessment / Plan
Assessment / Plan
74y F with PMH significant for GERD / HH s/p fundoplication, fibromyalgia and chronic pain who presents to ED complaining of abdominal pain.
Cecal Volvulus
-s/p open R colectomy 07/21/[address] Burleson
-pain control
-Await return of bowel function, no BM yet
-PT rec HH
Vomiting
-Concerning for postop ileus
-N.p.o.
-Urgent abdominal x-rays ordered
-IV antiemetics, IV Ativan
Hiatal Hernia s/p Tonio Fundoplication
Esophageal Stenosis
- Patient notes some recent issues with swallow dysfunction / food getting 'stuck'.
- Continue daily PPI, f/u w/ GI Dr. Lopez Do outpt
Fibromyalgia
Chronic opioid use with dependency
- Patient states this is managed with tramadol and cyclobenzaprine at home.
- Not on any fibromyalgia-specific agents.
DVT prophylaxis�subcu Lovenox
Full code
Total time spent to see the patient on the floor, examine the patient, review data and lab results, discuss treatment plan with patient, nursing staff around 51 minutes.
Physical exam
Gen: remains NAD, AAOx3.
Eyes: EOMI, PERRLA, no scleral icterus.
Neck: supple.
CV: RRR, +S1/S2, no m/r/g.
Resp: CTAB, no rales, wheezes, or rhonchi.
Abd: +BS, soft, diffuse tenderness to light palpation, ND, incision dressed
Skin: No rashes.
Neuro: CN 2-12 intact, non-focal.
Psych: Normal mood and affect.
Anticipated Discharge: > 48 hours
Subjective/Interval History
-
Date of Service: July 26, 2024
Patient seen and examined twice today. She complains of worsening abdominal pain. She started dry heaving in the afternoon. She is passing gas, no stool. No fever.
Objective Data
-
Vital Signs:
Vital Signs
Temp Pulse Resp BP Pulse Ox
98.7 F 89 16 146/98 96
07/26/24 07:58 07/26/24 07:58 07/26/24 07:58 07/26/24 07:58 07/26/24 07:58
I&O
07/25/24 07/26/24 07/27/24
06:59 06:59 06:59
Intake Total 0 / 0 1440 / 1440
Output Total 800 / 800
Balance -800 / -800 1440 / 1440
[2024-07-26] MEDS: ROXICODONE 10 MG PO (10:10)
--- NOTE | 2024-07-26 10:25 | W.PN.CRS1 ---
Today's Communication / Plan
-
stool softeners
Assessment/Plan
-
POD# 5 exploratory laparotomy with right colectomy and primary anastomosis
-Vitals normal.
-OOB with PT
-Continue low residue diet
-Ativan as needed for anxiety
-Teds and SCDs in place, Lovenox for DVT prophylaxis
-Pain control: Tylenol standing, Dilaudid PRN
-OR pathology pending
-Start Colace BID
-Discharge when pain is controlled
Subjective Data
Procedure
07/21- Exploratory laparotomy with right colectomy and primary anastomosis.
Subjective Data
Date of Service: July 26, 2024
Patient states she had some pain last night. She states it is mostly in her right lower quadrant. She has flatus. She has not had a bowel movement since surgery. She denies nausea or vomiting.
Objective Data
-
Vital Signs
Temp Pulse Resp BP Pulse Ox
98.7 F 89 16 146/98 96
07/26/24 07:58 07/26/24 07:58 07/26/24 07:58 07/26/24 07:58 07/26/24 07:58
Intake & Output
07/25/24 07/26/24 07/27/24
06:59 06:59 06:59
Intake Total 0 / 0 1440 / 1440
Output Total 800 / 800
Balance -800 / -800 1440 / 1440
Intake:
Oral fluids 0 / 0 1440 / 1440
Output:
Urine, Voided 800 / 800
Other:
Number of approximated MODERATE 1 2
amounts of urine
Lab Results
07/24/24 04:30
07/24/24 04:30
Physical Exam
-
General: No Acute Distress and AOx3
Abdomen: Soft, Non Distended and Tender (RLQ)
Skin: Warm and Dry
[2024-07-26 11:01] VITALS: BP 122/92
[2024-07-26] MEDS: COLACE 100 MG PO ×2 (12:55→20:39)
[2024-07-26] MEDS: ZOFRAN 4 MG IV (13:47)
[2024-07-26 14:43] VITALS: BP 125/81
[2024-07-26] MEDS: ATIVAN 0.5 MG IV (15:16)
[2024-07-26] MEDS: COMPAZINE 10 MG IV (15:17)
[2024-07-26] MEDS: NSS (PRESERVATIVE FREE) 0.25 ML IV (15:20)
[2024-07-26] MEDS: NSS 1000 IV (16:06)
[2024-07-26] MEDS: LOVENOX 40 MG SC (17:49)
[2024-07-26 23:48] VITALS: BP 166/87
[2024-07-27] MEDS: TYLENOL PO ×2 (00:41→05:24)
[2024-07-27] MEDS: DILAUDID 0.5 MG IV ×6 (01:58→23:56)
[2024-07-27 06:00] VITALS: BMI 22.2
[2024-07-27] MEDS: NSS 1000 IV (06:34)
[2024-07-27 07:09] LABS: % Basophils 0.3 % (0-2); % Eosinophils 6.8 % (0-6); % Immature Granulocytes 0.3 % (0-0.5); % Lymphocytes 29.6 % (20.5-51.1); % Monocytes 9.8 % (1.7-9.3); % Neutrophils 53.2 % (42.2-75.2); Absolute Eosinophils 0.3 10^3/uL (0-0.7); Absolute Lymphocytes 1.2 10^3/uL (1.2-3.4); Absolute Monocytes 0.4 10^3/uL (0.1-0.6); Absolute Neutrophils 2.1 10^3/uL (1.4-6.5); Hematocrit 32.3 % (37.0-47.0); Hemoglobin 10.7 g/dL (12.0-16.0); Mean Corp Hgb Conc. 33.1 g/dL (33.0-37.0); Mean Corpuscular Hgb 31.9 pg (27.0-31.0); Mean Corpuscular Volume 96.4 fL (81.0-99.0); Nucleated Red Blood Cells % 0 %; Platelet Count 307 10^3/uL (130-400); Red Blood Cell Count 3.35 10^6/uL (4.20-5.40); Red Cell Dist. Width 13.2 % (11.5-14.5)
[2024-07-27 07:45] VITALS: BP 133/71
[2024-07-27 07:45] LABS: Blood Urea Nitrogen 7 mg/dl (7-17); Carbon Dioxide 30 mmol/L (22-30); Chloride 101 mmol/L (98-107); Estimated Creatinine Clearance 65 ml/min; Glucose 92 mg/dl (70-99); Magnesium 1.8 mg/dl (1.6-2.3); Phosphorus 3.6 mg/dl (2.5-4.5); Potassium 3.7 mmol/L (3.5-5.1); Sodium 142 mmol/L (135-145); eGFR > 60.00
[2024-07-27] MEDS: NSS (PRESERVATIVE FREE) 10 ML IV (08:41)
[2024-07-27] MEDS: COLACE 100 MG PO ×2 (08:41→19:56)
[2024-07-27] MEDS: TYLENOL 650 MG PO ×5 (08:41→23:55)
[2024-07-27] MEDS: PROTONIX IV 40 MG IV (08:42)
[2024-07-27] MEDS: FLUSH (NSS) 1 FLUSH IV (08:42)
--- NOTE | 2024-07-27 08:50 | W.PN.HOSP.TC ---
Today's Communication/Plan
-
Clear liquid diet
Rectal suppository
Assessment / Plan
Assessment / Plan
74y F with PMH significant for GERD / HH s/p fundoplication, fibromyalgia and chronic pain who presents to ED complaining of abdominal pain.
Cecal Volvulus
-s/p open R colectomy 07/21/ AM by Dr. Burleson
-pain control
-Await return of bowel function, no BM yet
-Okay for clear liquids today
-PT rec HH
Vomiting
-Concerning for postop ileus
-Abdominal x-rays neg
-Vomiting resolved, continue antiemetics as needed
Hiatal Hernia s/p Tonio Fundoplication
Esophageal Stenosis
- Patient notes some recent issues with swallow dysfunction / food getting 'stuck'.
- Continue daily PPI, f/u w/ GI Dr. Lopez Do outpt
Fibromyalgia
Chronic opioid use with dependency
- Patient states this is managed with tramadol and cyclobenzaprine at home.
- Not on any fibromyalgia-specific agents.
DVT prophylaxis�subcu Lovenox
Full code
Total time spent to see the patient on the floor, examine the patient, review data and lab results, discuss treatment plan with patient, nursing staff around 41 minutes.
Physical exam
Gen: remains NAD, AAOx3.
Eyes: EOMI, PERRLA, no scleral icterus.
Neck: supple.
CV: RRR, +S1/S2, no m/r/g.
Resp: CTAB, no rales, wheezes, or rhonchi.
Abd: +BS, soft, diffuse tenderness to light palpation, ND, incision dressed
Skin: No rashes.
Neuro: CN 2-12 intact, non-focal.
Psych: Normal mood and affect.
Anticipated Discharge: 24 - 48 hours
Subjective/Interval History
-
Date of Service: July 27, 2024
Patient reports feeling slightly better today. Continues to have abdominal pain and nausea. Vomiting resolved. Is passing gas, no bowel movement.
Objective Data
-
Labs:
Laboratory Results
07/27/24
06:41
WBC 4.0 L
Hgb 10.7 L
Hct 32.3 L
Plt Count 307
Sodium 142
Potassium 3.7
Chloride 101
Carbon Dioxide 30
BUN 7
Creatinine 0.5 L
Glucose 92
Calcium 9.0
Vital Signs:
Vital Signs
Temp Pulse Resp BP Pulse Ox
98.7 F 85 18 133/71 94
07/27/24 07:45 07/27/24 07:45 07/27/24 07:45 07/27/24 07:45 07/27/24 07:45
I&O
07/26/24 07/27/24 07/28/24
06:59 06:59 06:59
Intake Total 1440 / 1440 480 / 480
Balance 1440 / 1440 480 / 480
[2024-07-27 10:00] VITALS: BP 133/71; PULSE 91; O2SAT 95
[2024-07-27] MEDS: DULCOLAX 10 MG RECTAL (10:09)
--- NOTE | 2024-07-27 11:20 | W.PN.CRS1 ---
Today's Communication / Plan
-
clears
rectal suppository
Assessment/Plan
-
POD# 6 exploratory laparotomy with right colectomy and primary anastomosis
-Vitals normal.
-OOB with PT
-Advance diet to clears
-Ativan as needed for anxiety
-Teds and SCDs in place, Lovenox for DVT prophylaxis
-Pain control: Tylenol standing, Dilaudid PRN
-OR pathology pending
-On Colace BID, rectal suppository x 1 now
Subjective Data
Procedure
07/21- Exploratory laparotomy with right colectomy and primary anastomosis.
Subjective Data
Date of Service: July 27, 2024
Patient states she has 7/10 pain. She has no bowel movements yet. She has flatus. She states her pain was better than yesterday.
Objective Data
-
Vital Signs
Temp Pulse Resp BP Pulse Ox
98.7 F 85 18 133/71 94
07/27/24 07:45 07/27/24 07:45 07/27/24 07:45 07/27/24 07:45 07/27/24 07:45
Intake & Output
07/26/24 07/27/24 07/28/24
06:59 06:59 06:59
Intake Total 1440 / 1440 480 / 480
Balance 1440 / 1440 480 / 480
Intake:
Oral fluids 1440 / 1440 480 / 480
Other:
Number of approximated MODERATE 2 2
amounts of urine
Lab Results
07/27/24 06:41
07/27/24 06:41
Physical Exam
-
General: No Acute Distress and AOx3
Abdomen: Soft, Non Distended and Tender (mild throughout)
Skin: Warm and Dry
--- NOTE | 2024-07-27 15:22 | CM ---
ROBERT met with Adeola; she is on a clear liquid diet at this time; participating in PT/OT. Recommendation is for home care at discharge.
Plan: Adeola anticipates discharge to home when she is medically ready; estimated 24-48 hours. Her Partner will provide trnasport home.
Adeola is known to [facility] and being followed for homecare services at discharge.
[2024-07-27 15:57] VITALS: BP 144/82
[2024-07-27] MEDS: LOVENOX 40 MG SC (17:23)
[2024-07-27] MEDS: NSS IV (17:28)
[2024-07-27] MEDS: ZOFRAN 4 MG IV (17:30)
[2024-07-27 23:15] VITALS: BP 147/82
[2024-07-28] MEDS: TYLENOL PO (03:30)
[2024-07-28] MEDS: ZOFRAN 4 MG IV (04:41)
[2024-07-28 06:00] VITALS: BMI 21.8
[2024-07-28] MEDS: DILAUDID 0.5 MG IV ×2 (06:35→09:44)
[2024-07-28 07:19] VITALS: BP 144/88
[2024-07-28] MEDS: NSS (PRESERVATIVE FREE) 10 ML IV (08:05)
[2024-07-28] MEDS: PROTONIX IV 40 MG IV (08:05)
[2024-07-28] MEDS: COLACE 100 MG PO ×2 (08:06→21:07)
[2024-07-28] MEDS: TYLENOL 650 MG PO ×4 (08:06→21:07)
[2024-07-28 08:56] LABS: Blood Urea Nitrogen 4 mg/dl (7-17); Calcium 9.1 mg/dl (8.4-10.2); Carbon Dioxide 27 mmol/L (22-30); Chloride 101 mmol/L (98-107); Estimated Creatinine Clearance 65 ml/min; Glucose 111 mg/dl (70-99); Potassium 3.5 mmol/L (3.5-5.1); Sodium 142 mmol/L (135-145); eGFR > 60.00
--- NOTE | 2024-07-28 09:15 | W.PN.HOSP.TC ---
Today's Communication/Plan
-
Possible discharge tomorrow with improvement in pain
Assessment / Plan
Assessment / Plan
74y F with PMH significant for GERD / HH s/p fundoplication, fibromyalgia and chronic pain who presents to ED complaining of abdominal pain.
Cecal Volvulus
-s/p open R colectomy 07/21/[address] Burleson
-pain control
-Tolerating clear liquids, advance to full's for lunch, then low residue for dinner
-PT rec HH, possible discharge tomorrow
Vomiting
-Concerning for postop ileus
-Abdominal x-rays neg
-Vomiting resolved, continue antiemetics as needed
Hiatal Hernia s/p Tonio Fundoplication
Esophageal Stenosis
- Patient notes some recent issues with swallow dysfunction / food getting 'stuck'.
- Continue daily PPI, f/u w/ GI Dr. Lopez Do outpt
Fibromyalgia
Chronic opioid use with dependency
- Patient states this is managed with tramadol and cyclobenzaprine at home.
- Not on any fibromyalgia-specific agents.
DVT prophylaxis�subcu Lovenox
Full code
Total time spent to see the patient on the floor, examine the patient, review data and lab results, discuss treatment plan with patient, nursing staff around 48 minutes.
Physical exam
Gen: remains NAD, AAOx3.
Eyes: EOMI, PERRLA, no scleral icterus.
Neck: supple.
CV: RRR, +S1/S2, no m/r/g.
Resp: CTAB, no rales, wheezes, or rhonchi.
Abd: +BS, soft, diffuse tenderness to light palpation, ND, incision dressed
Skin: No rashes.
Neuro: CN 2-12 intact, non-focal.
Psych: Normal mood and affect.
Anticipated Discharge: Within 24 hours
Subjective/Interval History
-
Date of Service: July 28, 2024
Patient had some nausea this morning. No vomiting, no retching. Continues to have abdominal pain. She had a stool yesterday evening. No fever.
Objective Data
-
Labs:
Laboratory Results
07/28/24
06:45
Sodium 142
Potassium 3.5
Chloride 101
Carbon Dioxide 27
BUN 4 L
Creatinine 0.4 L
Glucose 111 H
Calcium 9.1
Vital Signs:
Vital Signs
Temp Pulse Resp BP Pulse Ox
98.5 F 89 16 144/88 96
07/28/24 07:19 07/28/24 07:19 07/28/24 07:19 07/28/24 07:19 07/28/24 07:19
I&O
07/27/24 07/28/24 07/29/24
06:59 06:59 06:59
Intake Total 480 / 480 1560 / 1560
Balance 480 / 480 1560 / 1560
[2024-07-28] MEDS: KCL 20 MEQ PO (09:44)
--- NOTE | 2024-07-28 13:27 | W.PN.GS2 ---
Addendum entered and electronically signed by Travon Overton MD 07/28/24 13:51:
Patient seen and examined with nurse practitioner. Agree with documented progress note
Patient concerned regarding persistent abdominal discomfort/pain postoperatively
Nausea improving
Passing flatus and liquid stool
AFVSS sitting in chair at bedside
ABD: Soft, nondistended, mild generalized tenderness predominantly at the incision site. Incision with inocencio. Dressing removed.
A/P: Advancing to full liquid diet
Encourage ambulation
Original Note:
Today's Communication / Plan
-
Advance to FLD
Assessment / Plan
-
74 yo female presenting with cecal volvulus and now POD #7 exploratory laparotomy with right colectomy and primary anastomosis
AFVSS
Ileus resolving with passage of stool/flatus, tolerating clears
Issues with pain but continues to improve
electrolytes stable
--Ok for FLD
--Multimodal analgesics, encouraged PO over IV agents
--Encourage ambulation/oob
--C/W VTE ppx with lovenox and scds
Medical management as per primary team
Subjective Data
-
Date of Service: July 28, 2024
Patient seen and examined at bedside with Dr. Overton. Abdominal pain improving, but still some some soreness. Intermittent mild nausea but no vomiting. Passing flatus and liquid stools.
Objective Data
-
Intake and Output
07/27/24 07/28/24 07/29/24
06:59 06:59 06:59
Intake Total 480 / 480 1560 / 1560
Balance 480 / 480 1560 / 1560
Intake:
Oral fluids 480 / 480 660 / 660
IV fluids (Total) 900 / 900
Other:
Number of approximated MODERATE 2 2
amounts of urine
Vital Signs
Temp Pulse Resp BP Pulse Ox
98.5 F 89 16 144/88 96
07/28/24 07:19 07/28/24 07:19 07/28/24 07:19 07/28/24 07:19 07/28/24 07:19
Lab Results
07/27/24 06:41
07/28/24 06:45
Calcium 9.1 mg/dl (8.4-10.2) 07/28/24 06:45
Phosphorus 3.6 mg/dl (2.5-4.5) 07/27/24 06:41
Magnesium 1.8 mg/dl (1.6-2.3) 07/27/24 06:41
Total Bilirubin 0.7 mg/dl (0.2-1.3) 07/20/24 22:47
AST 40 U/L (14-36) H 07/20/24 22:47
ALT 30 U/L (0-35) 07/20/24 22:47
Alkaline Phosphatase 69 U/L (38-126) 07/20/24 22:47
Total Protein 7.5 g/dl (6.3-8.2) 07/20/24 22:47
Albumin 4.8 g/dl (3.5-5.0) 07/20/24 22:47
Physical Exam
-
GENERAL/NEURO: Awake, Alert, no distress
CHEST: Unlabored breathing on RA
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
EXTREMITIES: warm, well perfused, no jaundice, no cyanosis, no edema
[2024-07-28 15:26] VITALS: BP 137/71
[2024-07-28] MEDS: ROXICODONE 5 MG PO (17:07)
[2024-07-28] MEDS: MIRALAX 17 GRAMS PO (17:07)
[2024-07-28] MEDS: DILAUDID 0.25 MG IV (18:02)
[2024-07-28] MEDS: LOVENOX 40 MG SC (18:13)
[2024-07-28] MEDS: ROXICODONE 10 MG PO (21:07)
[2024-07-28 23:05] VITALS: BP 144/76
[2024-07-29] MEDS: TYLENOL 650 MG PO ×5 (01:24→22:11)
[2024-07-29] MEDS: DILAUDID 0.25 MG IV ×3 (01:24→15:58)
[2024-07-29] MEDS: TYLENOL PO (04:58)
[2024-07-29] MEDS: COLACE 100 MG PO ×2 (07:11→22:11)
[2024-07-29] MEDS: MIRALAX 17 GRAMS PO (07:11)
[2024-07-29] MEDS: ROXICODONE 10 MG PO ×2 (07:11→22:19)
[2024-07-29] MEDS: PROTONIX IV 40 MG IV (07:12)
[2024-07-29] MEDS: NSS (PRESERVATIVE FREE) 10 ML IV (07:12)
[2024-07-29 07:25] VITALS: BP 154/81
[2024-07-29] MEDS: ATIVAN 0.5 MG PO (07:33)
--- NOTE | 2024-07-29 08:39 | W.PN.HOSP.TC ---
Today's Communication/Plan
-
Continue pain control
Discharge when pain improves
Assessment / Plan
Assessment / Plan
74y F with PMH significant for GERD / HH s/p fundoplication, fibromyalgia and chronic pain who presents to ED complaining of abdominal pain.
Cecal Volvulus
-S/p open R colectomy 07/21/ AM by Dr. Burleson
-Continue pain meds, encourage oral over IV. Had bowel movement 07/27.
-Tolerating low residue diet
-PT rec HH, discharge when pain is improved
Vomiting
-Abdominal x-rays neg
-Vomiting resolved, continue antiemetics as needed
Anxiety
-CRS ordered Ativan as needed
Hiatal Hernia s/p Tonio Fundoplication
Esophageal Stenosis
- Patient notes some recent issues with swallow dysfunction / food getting 'stuck'.
- Continue daily PPI, f/u w/ GI Dr. Lopez Do outpt
Fibromyalgia
Chronic opioid use with dependency
- Patient states this is managed with tramadol and cyclobenzaprine at home.
- Not on any fibromyalgia-specific agents.
DVT prophylaxis�subcu Lovenox
Full code
Total time spent to see the patient on the floor, examine the patient, review data and lab results, discuss treatment plan with patient, nursing staff around 38 minutes.
Physical exam
Gen: remains NAD, AAOx3.
Eyes: EOMI, PERRLA, no scleral icterus.
Neck: supple.
CV: RRR, +S1/S2, no m/r/g.
Resp: CTAB, no rales, wheezes, or rhonchi.
Abd: +BS, soft, diffuse tenderness to light palpation, ND, incision dressed
Skin: No rashes.
Neuro: CN 2-12 intact, non-focal.
Psych: Normal mood and affect.
Anticipated Discharge: Within 24 hours
Subjective/Interval History
-
Date of Service: July 29, 2024
Patient complains of severe abdominal pain. States her abdominal pain is 9 in intensity before oxycodone 10 mg. Afterwards, states it is still 7 out of 10. She is tolerating a low residue diet. No nausea, no vomiting. She is passing gas, no
stool. No fever. No chest pain, no shortness of breath.
Objective Data
-
Labs:
Laboratory Results
07/29/24
06:00
WBC Pending
Hgb Pending
Hct Pending
Plt Count Pending
Sodium Pending
Potassium Pending
Chloride Pending
Carbon Dioxide Pending
BUN Pending
Creatinine Pending
Glucose Pending
Calcium Pending
Vital Signs:
Vital Signs
Temp Pulse Resp BP Pulse Ox
98.4 F 85 18 154/81 95
07/29/24 07:25 07/29/24 07:25 07/29/24 07:25 07/29/24 07:25 07/29/24 07:25
I&O
07/28/24 07/29/24 07/30/24
06:59 06:59 06:59
Intake Total 1560 / 1560 960 / 960
Balance 1560 / 1560 960 / 960
[2024-07-29 09:22] LABS: Blood Urea Nitrogen 5 mg/dl (7-17); Calcium 9.5 mg/dl (8.4-10.2); Carbon Dioxide 30 mmol/L (22-30); Chloride 99 mmol/L (98-107); Estimated Creatinine Clearance 65 ml/min; Glucose 94 mg/dl (70-99); Potassium 4.1 mmol/L (3.5-5.1); Sodium 141 mmol/L (135-145); eGFR > 60.00
[2024-07-29 09:57] LABS: Platelet Count 377 10^3/uL (130-400)
[2024-07-29 11:27] LABS: Hematocrit 32.7 % (37.0-47.0); Hemoglobin 10.9 g/dL (12.0-16.0); Mean Corp Hgb Conc. 33.3 g/dL (33.0-37.0); Mean Corpuscular Hgb 31.1 pg (27.0-31.0); Mean Corpuscular Volume 93.4 fL (81.0-99.0); Mean Platelet Volume 8.6 fL (7.4-10.4); Red Cell Dist. Width 13.3 % (11.5-14.5); White Blood Cell Count 4.4 10^3/uL (4.8-10.8)
--- NOTE | 2024-07-29 12:34 | W.PN.GS2 ---
Addendum entered and electronically signed by Travon Overton MD 07/29/24 12:48:
Patient seen and examined with surgical FOREST FIRE MANAGEMENT OFFICER. Agree with documented progress note.
Patient continues to report incisional discomfort which she thought would be gone by now
Tolerated low residue diet
No worsening pain with dietary intake. No nausea, no vomiting, appetite fair.
AFVSS
ABD: Soft, slightly protuberant but not tensely distended. Mild tenderness localized to incision site. Incision site dressing left in place as patient prefers not to change it at the moment
A/P: POD #8 status post RHC
Continue with low residue diet and bowel regimen
Okay for discharge from surgical standpoint
Reassured patient her postoperative recovery is going well
Original Note:
Today's Communication / Plan
-
Pain management
LRD
Assessment / Plan
-
74 yo female presenting with cecal volvulus and now POD #8 exploratory laparotomy with right colectomy and primary anastomosis
AFVSS
Tolerating diet with evidence of good bowel recovery
Issues with pain but continues to improve
Labs stable
--Continue LRD
--Multimodal analgesics, encouraged PO over IV agents
--Encourage ambulation/oob
--C/W VTE ppx with lovenox and scds
Medical management as per primary team. Clear for discharge from surgical perspective once pain controlled if continues to tolerate diet, tentatively tomorrow
Subjective Data
-
Date of Service: July 29, 2024
Patient seen and examined at bedside with Dr. Overton. Denies n/v. Tolerating diet. No BM today but BM last night. Still reporting that pain is bothersome, worried as she did not realize she would have pain this long after surgery; reassurance
provided.
Objective Data
-
Intake and Output
07/28/24 07/29/24 07/30/24
06:59 06:59 06:59
Intake Total 1560 / 1560 960 / 960
Balance 1560 / 1560 960 / 960
Intake:
Oral fluids 660 / 660 960 / 960
IV fluids (Total) 900 / 900
Other:
Number of approximated MODERATE 2 5
amounts of urine
Vital Signs
Temp Pulse Resp BP Pulse Ox
98.4 F 85 18 154/81 97
07/29/24 07:25 07/29/24 07:25 07/29/24 07:25 07/29/24 07:25 07/29/24 10:11
Lab Results
07/29/24 08:51
07/29/24 08:51
Calcium 9.5 mg/dl (8.4-10.2) 07/29/24 08:51
Phosphorus 3.6 mg/dl (2.5-4.5) 07/27/24 06:41
Magnesium 1.8 mg/dl (1.6-2.3) 07/27/24 06:41
Total Bilirubin 0.7 mg/dl (0.2-1.3) 07/20/24 22:47
AST 40 U/L (14-36) H 07/20/24 22:47
ALT 30 U/L (0-35) 07/20/24 22:47
Alkaline Phosphatase 69 U/L (38-126) 07/20/24 22:47
Total Protein 7.5 g/dl (6.3-8.2) 07/20/24 22:47
Albumin 4.8 g/dl (3.5-5.0) 07/20/24 22:47
Physical Exam
-
GENERAL/NEURO: Awake, Alert, no distress
CHEST: Unlabored breathing on RA
ABDOMEN: Soft, mild incisional tenderness and to RLQ, ND, FOREST FI[employer] MANAGEMENT OFFICER
EXTREMITIES: warm, well perfused, no jaundice, no cyanosis, no edema
[2024-07-29 15:06] VITALS: BP 139/93
[2024-07-29] MEDS: LOVENOX 40 MG SC (17:52)
[2024-07-29 23:25] VITALS: BP 134/84
[2024-07-30] MEDS: DILAUDID 0.25 MG IV ×2 (00:38→10:18)
[2024-07-30] MEDS: TYLENOL 650 MG PO ×5 (00:39→20:12)
[2024-07-30] MEDS: TYLENOL PO (04:00)
[2024-07-30 06:00] VITALS: BMI 21.6
[2024-07-30 07:35] VITALS: BP 163/86
--- NOTE | 2024-07-30 08:06 | W.PN.HOSP.TC ---
Addendum entered and electronically signed by Dong Lawson MD 07/30/24 13:03:
I saw and evaluated the patient. I reviewed the resident�s note and agree with findings and plan as documented in the resident�s note.
Pt c/o persistent abdominal pain and is concerned that she has not had a BM recently.
Gen: NAD, AAOx3.
Eyes: EOMI, PERRLA, no scleral icterus.
Neck: supple.
CV: RRR, +S1/S2, no m/r/g.
Resp: CTAB, no rales, wheezes, or rhonchi.
Abd: +BS, soft, tender to light palpation, ND
Skin: No rashes.
Neuro: CN 2-12 intact, non-focal.
Psych: slightly anxious
Cecal volvulus:
-s/p open R colectomy 07/21/[address] Burleson
-had bowel movement 07/27/24
-case discussed at length with CRS. Pt is medically cleared for discharge from their standpoint.
-no further IV narcotics
-can consider starting cymbalta for FMS pain
-will add neurontin
Medically cleared for d/c. Case management aware.
Original Note:
Today's Communication/Plan
-
Add senokot to the bowel regimen
magnesium citrate stat
switch to regular diet?
optimize oral pain medications
plan discharge
Assessment / Plan
Assessment / Plan
74y F with PMH significant for GERD / HH s/p fundoplication, fibromyalgia and chronic pain post op for cecal volvolus
Cecal Volvulus
-S/p open R colectomy 07/21/[address] Burleson
- Had bowel movement 07/27.
-Tolerating low residue diet,wants to have diet high in fiber
-still has 8/10 pain
_Relieve pain try to optimize oral meds
Constipation
-Last bowel movement 2 days ago
-patient is on opioids
-magnesium citrate to help with bowel movements
-add sennakot to scheduled meds
Anxiety
-CRS ordered Ativan as needed
Hiatal Hernia s/p Tonio Fundoplication
Esophageal Stenosis
- Patient notes some recent issues with swallow dysfunction / food getting 'stuck'.
- Continue daily PPI, f/u w/ GI Dr. Lopez Do outpt
Fibromyalgia
Chronic opioid use with dependency
- Patient states this is managed with tramadol and cyclobenzaprine at home.
- Not on any fibromyalgia-specific agents.
DVT prophylaxis�subcu Lovenox
Full code
Anticipated Discharge: Within 24 hours
Subjective/Interval History
-
Date of Service: July 30, 2024
Pain at incision site 05/26
constipation-3days
Objective Data
-
Labs:
Laboratory Results
07/30/24
06:00
WBC Pending
Hgb Pending
Hct Pending
Plt Count Pending
Vital Signs:
Vital Signs
Temp Pulse Resp BP Pulse Ox
98.4 F 90 17 134/84 97
07/29/24 23:25 07/29/24 23:25 07/29/24 23:25 07/29/24 23:25 07/29/24 23:25
I&O
07/29/24 07/30/24 07/31/24
06:59 06:59 06:59
Intake Total 960 / 960 960 / 960
Balance 960 / 960 960 / 960
Review of Systems
-
All other systems: Reviewed and negative
Physical Exam
-
General: Well Developed, Well Nourished, Comfortable and Pain (at incicion site 05/26)
HEENT: Normocephalic, Atraumatic and Anicteric
Respiratory: Clear to Auscultation
Cardiac: Regular Rhythm and S1/S2
GI: Soft and Tender (around incision, incision appears clean with no discharge)
Genito-urinary: No Costovertebral Tender
Musculoskeletal: No Clubbing and Other (herbendon nodes present)
Skin: Warm and Dry
Neuro: Awake, Alert and Oriented
Hematologic / Lymphatic: No Lymphadenopathy
Psych: Calm
[2024-07-30] MEDS: MIRALAX 17 GRAMS PO (08:19)
[2024-07-30] MEDS: PROTONIX 40 MG PO (08:19)
[2024-07-30] MEDS: COLACE 100 MG PO ×2 (08:19→21:17)
[2024-07-30] MEDS: ROXICODONE 10 MG PO ×2 (08:26→13:39)
[2024-07-30] MEDS: ZOFRAN 4 MG IV ×2 (10:19→16:45)
[2024-07-30] MEDS: FLUSH (NSS) 1 FLUSH IV (10:20)
--- NOTE | 2024-07-30 11:15 | W.PN.CRS1 ---
Today's Communication / Plan
-
regular diet
magnesium citrate
suppository
Assessment/Plan
-
POD#9 exploratory laparotomy with right colectomy and primary anastomosis
-Vitals normal.
-OOB with PT
-Change to a regular diet
-Ativan as needed for anxiety
-Teds and SCDs in place, Lovenox for DVT prophylaxis
-Pain control: Tylenol standing, Dilaudid PRN
-OR pathology pending
-Rectal suppository x 1, magnesium citrate x 1
Subjective Data
Procedure
07/21- Exploratory laparotomy with right colectomy and primary anastomosis.
Subjective Data
Date of Service: July 30, 2024
Patient states she has pain around her incision. She has some nausea but no vomiting. She had a bowel movement on the Jul 27 and has had flatus since.
Objective Data
-
Vital Signs
Temp Pulse Resp BP Pulse Ox
98.4 F 84 18 163/86 97
07/30/24 07:35 07/30/24 07:35 07/30/24 07:35 07/30/24 07:35 07/30/24 07:35
Intake & Output
07/29/24 07/30/24 07/31/24
06:59 06:59 06:59
Intake Total 960 / 960 960 / 960
Balance 960 / 960 960 / 960
Intake:
Oral fluids 960 / 960 960 / 960
Other:
Number of approximated MODERATE 5 2
amounts of urine
Lab Results
07/29/24 08:51
Physical Exam
-
General: No Acute Distress and AOx3
Abdomen: Soft, Non Distended and Tender (around incision)
Skin: Warm and Dry
Incision: Clear, Dry, Intact
[2024-07-30 11:35] LABS: Hemoglobin 10.7 g/dL (12.0-16.0); Mean Corp Hgb Conc. 33.4 g/dL (33.0-37.0); Mean Corpuscular Hgb 30.7 pg (27.0-31.0); Mean Corpuscular Volume 91.7 fL (81.0-99.0); Mean Platelet Volume 10.6 fL (7.4-10.4); Platelet Count 250 10^3/uL (130-400); Red Blood Cell Count 3.49 10^6/uL (4.20-5.40); Red Cell Dist. Width 13.5 % (11.5-14.5); White Blood Cell Count 4.7 10^3/uL (4.8-10.8)
--- NOTE | 2024-07-30 13:11 | W.DCSUMMARY ---
Addendum entered and electronically signed by Dong Lawson MD 07/30/24 14:12:
Read, reviewed, and agree. See same day progress note for additional details.
Total time spent on d/c = 40 min. This included today's physical exam, progress note, review of laboratory and diagnostic data, preparation of discharge documents and prescriptions, and discussions about the pt's hospital course and discharge plan
with the patient and other medical center representative involved in the patient's care.
Original Note:
Discharge Summary
Discharge Data
Date of Admission: 07/21/24
Date of Discharge: 07/30/24
-
Pending Results: No
Hospital Course
Discharging Physician : Dr.Joshua Lawson, Dr. Grecia Rodas
Disposition : Home with home care
Colorectal Surgeon : Dr. Dwayne Burleson Director Client Services- Dr. Jessica Stack
Principal Discharge diagnosis : cecal volvulus managed with exploratory laparotomy and right colectomy
Chronic Discharge diagnosis : Fibromyalgia with chronic opioid dependency, he had 2 hernia s/p Tonio fundoplication, esophageal stenosis, GERD, sigmoid diverticulitis,CVA(2022)
Hospital Course : Patient is a 74-year-old female who presented to [facility] emergency with abdominal pain that initially started in the right upper quadrant and then spread to the entire abdomen with associated nausea. Due to her diffuse
abdominal tenderness with voluntary guarding, concern for acute intra-abdominal process, a CT scan of abdomen was done that was consistent with a cecal volvulus with small amount of free fluid. Patient underwent exploratory laparotomy with right
colectomy and primary anastomosis for cecal volvulus repair. She gradually started clear liquid diet, low residue diet and regular diet. She had her bowel movements and she was passing flatus. Opioids used for pain management and a strict bowel
regime to avoid opioid induced constipation.
The patient is feeling well with occasional nausea, tolerating oral diet and cleared by colorectal surgery for discharge.
The patient will be discharged with wound care instructions and follow-up advice with the quarry supervisor and the colorectal surgeon.
Important imaging findings :
CT ABDOMEN/PELVIS FINDINGS
Bowel: Moderate hiatal hernia, without evidence of incarceration.
There is significant dilation of the cecum, and the cecum is rotated medially, consistent with cecal volvulus. No pneumatosis intestinalis or extraluminal air. No abdominal pelvic abscess.
Oral contrast is seen to the level of the rectum.
IMPRESSION:
1. Findings consistent with cecal volvulus. No evidence of bowel perforation.
2. Moderate hiatal hernia.
CR Abdomen - 2 Views
Indication: Right colectomy postop day 5. Pain and no bowel movement
No evidence of acute pathology.
Specifically, there is no free intraperitoneal air and there is no bowel dilatation to suggest obstruction.
Postoperative changes
Lumbar levoscoliosis with multilevel lumbar degenerative disc disease
Procedure findings : Exploratory laparotomy with right colectomy and primary
anastomosis for cecal volvolus repair
Discharge Plan
-
Patient Disposition: Home with Home Care
Discharge Diagnosis/Procedures: cecal volvulus managed with exploratory laparotomy and right colectomy
Condition: Good
Diet: Low Fiber
Activity: No strenuous activity
Additional Activity: Do not lift over 10 lbs (gallon of milk)
Driving Restrictions: Wait until off narcotics/comfortable twisting
Bathing Restrictions: OK to Shower
Wound Care: Ok to leave incision open to air with no dressing, but if you choose to cover with a dressing use clean gauze and change daily. Remove dressing prior to showering and clean incision gently with soap and water.
[place] will be removed during your follow up appointment with Dr. Burleson
Referrals:
Keven Burleson MD [Active] - in two weeks
Jessica Hogan MD [Active] - in three to four weeks
UNKNOWN - PT NOT,INTERVIEWE [Family Provider] -
Prescriptions:
New
acetaminophen 325 mg Tablet
650 mg PO Q4HWA 30 Days Qty: 360 0RF
polyethylene glycol 3350 [HealthyLax] 17 gram Powder In Packet
17 g PO DAILY 30 Days Qty: 30 0RF
sennosides-docusate sodium 8.6-50 mg Tablet
1 tab PO DAILYPRN PRN (Reason: opioid induced constipation) 30 Days Qty: 30 0RF
gabapentin 100 mg Capsule
100 mg PO TID 30 Days Qty: 90 0RF
docusate sodium 100 mg Capsule
100 mg PO BID Qty: 0 0RF
oxycodone 5 mg Tablet
5 mg PO Q4HPRN PRN (Reason: moderate pain) Qty: 6 0RF
Continued
rosuvastatin 20 mg Tablet
40 mg PO QPM Qty: 60 0RF
cyclobenzaprine 5 mg Tablet
5 mg PO TID
pantoprazole 40 mg Tablet,Delayed Release (Dr/Ec)
40 mg PO DAILY
Discontinued
tramadol 50 mg Tablet
50 mg PO TID PRN (Reason: severe pain)
Discharge Orders:
Discharge Patient (As Directed); Ordered 07/30/24
Ordered By: Grecia Rodas
Discharge Date and Time
Print Language: SLOVENIAN
[2024-07-30] MEDS: NEURONTIN PO ×3 (13:33→20:14)
--- NOTE | 2024-07-30 14:00 | PTCARENOTE ---
Patient c/o abdominal pain 05/26. Medicated with Roxicodone 10mg. See MAR. Patient refused Magnesium Citrate, Dulcolax and Gabapentin Dr. Lawson notified. Plan of care ongoing
--- NOTE | 2024-07-30 15:00 | W.PN.UPDATE ---
Update Note
Progress Note Update
Case discussed with Kristel Johnson (pt's nurse). The pt has refused Neurontin, Citroma, and Ducolax.
[2024-07-30 15:20] VITALS: BP 137/91
[2024-07-30] MEDS: LOVENOX 40 MG SC (17:19)
[2024-07-30] MEDS: SENOKOT-S 1 TABLET PO (17:27)
[2024-07-30] MEDS: COLACE PO (20:14)
[2024-07-30] MEDS: ULTRAM 50 MG PO (20:14)
[2024-07-30] MEDS: FLEXERIL 5 MG PO (21:14)
[2024-07-30 23:55] VITALS: BP 143/70
[2024-07-31] MEDS: TYLENOL 650 MG PO ×6 (01:13→21:45)
[2024-07-31] MEDS: ULTRAM 50 MG PO ×3 (04:26→21:46)
[2024-07-31 06:00] VITALS: BMI 21.6
[2024-07-31 07:21] VITALS: BP 146/78
[2024-07-31 08:17] LABS: Hematocrit 32.7 % (37.0-47.0); Hemoglobin 11.2 g/dL (12.0-16.0); Mean Corp Hgb Conc. 34.3 g/dL (33.0-37.0); Mean Corpuscular Hgb 31.9 pg (27.0-31.0); Mean Corpuscular Volume 93.2 fL (81.0-99.0); Platelet Count 188 10^3/uL (130-400); Red Blood Cell Count 3.51 10^6/uL (4.20-5.40); Red Cell Dist. Width 13.4 % (11.5-14.5); White Blood Cell Count 3.8 10^3/uL (4.8-10.8)
[2024-07-31] MEDS: NEURONTIN 100 MG PO ×3 (08:27→21:45)
[2024-07-31] MEDS: PROTONIX 40 MG PO (08:27)
[2024-07-31] MEDS: COLACE 100 MG PO (08:27)
[2024-07-31] MEDS: MIRALAX 17 GRAMS PO (08:34)
--- NOTE | 2024-07-31 10:27 | W.PN.HOSP.TC ---
Addendum entered and electronically signed by Dong Lawson MD 07/31/24 13:13:
I saw and evaluated the patient. I reviewed the resident�s note and agree with findings and plan as documented in the resident�s note.
Patient reports no bowel movement since I saw her yesterday. Still complains of abdominal pain and is asking for a one-time dose of IV Dilaudid to 'take the edge off.'
Gen: NAD, AAOx3.
Eyes: EOMI, PERRLA, no scleral icterus.
Neck: supple.
CV: Remains RRR, +S1/S2, no m/r/g.
Resp: Remains CTAB, no rales, wheezes, or rhonchi.
Abd: Remains +BS, soft, tender to light palpation, ND
Skin: No rashes.
Neuro: CN 2-12 intact, non-focal.
Psych: normal mood and affect
Cecal volvulus:
-s/p open R colectomy 07/21/[address] Burleson
-had bowel movement 07/27/24
-case discussed at length with CRS on 07/30/24 and 07/31/24 and the patient remains medically cleared for discharge from their standpoint.
-no further IV narcotics will be given
-can consider starting cymbalta for FMS pain
-Continue neurontin (pt no longer refusing)
-cont bowel regimen
The patient was discharged on 07/30/24. At that time the patient stated she was going to appeal her discharge and call advanced. She did not call advance yesterday or today. This was discussed with case management, both Tammie Grullon and Heather
Pou. The patient remains medically stable for discharge and the discharge order remains in since yesterday.
Original Note:
Today's Communication/Plan
-
Patient is okay to discharge after discussion with colorectal and general surgery
No IV narcotics
Optimize oral medications
Do the bowel regime and Citroma for constipation
suppository stat
Plan discharge
Assessment / Plan
Assessment / Plan
74y F with PMH significant for GERD / HH s/p fundoplication, fibromyalgia and chronic pain post op for cecal volvolus
Cecal Volvulus
-S/p open R colectomy 07/21/[address] Burleson
- Had bowel movement 07/27.
-Patient shifted to regular diet
-Colorectal surgery consult appreciated--patient okay to discharge, recovery is going well
-General Surgery--cleared the patient for discharge reassured the patient that recovery is going well
-Optimize oral pain medications
-Counseled patient
Anxiety
-CRS ordered Ativan as needed
Hiatal Hernia s/p Tonio Fundoplication
Esophageal Stenosis
- Patient notes some recent issues with swallow dysfunction / food getting 'stuck'.
- Continue daily PPI, f/u w/ GI Dr. Lopez Do outpt
Fibromyalgia
Chronic opioid use with dependency
- Patient states this is managed with tramadol and cyclobenzaprine at home.
- Not on any fibromyalgia-specific agents.
Give suppository in stat for constipation
DVT prophylaxis�subcu Lovenox
Full code
Anticipated Discharge: 24 - 48 hours
Subjective/Interval History
-
Date of Service: July 31, 2024
Objective Data
-
Labs:
Laboratory Results
07/31/24
04:38
WBC 3.8 L
Hgb 11.2 L
Hct 32.7 L
Plt Count 188 D
Vital Signs:
Vital Signs
Temp Pulse Resp BP Pulse Ox
97.8 F 87 18 146/78 97
07/31/24 07:21 07/31/24 07:21 07/31/24 07:21 07/31/24 07:21 07/31/24 07:21
I&O
07/30/24 07/31/2408/01/24
06:59 06:59 06:59
Intake Total 960 / 960 840 / 840
Balance 960 / 960 840 / 840
Review of Systems
-
All other systems: Reviewed and negative
Physical Exam
-
General: Well Developed, Well Nourished and Conversant
HEENT: Normocephalic, Atraumatic and Moist Mucous Membranes
Respiratory: Clear to Auscultation
Cardiac: Regular Rhythm and S1/S2
GI: Soft, Normal Bowel Sounds and Tender (Mildly tender at the incision site)
Genito-urinary: No Costovertebral Tender
Musculoskeletal: No Clubbing and No Cyanosis
Skin: Warm and Dry
Neuro: Awake and Alert
Hematologic / Lymphatic: No Lymphadenopathy
Psych: Anxious
[2024-07-31] MEDS: GLYCERIN SUPPOSITORY ADULT 1 SUPP RECTAL (11:08)
[2024-07-31 11:52] VITALS: BP 134/73; BP 144/71; PULSE 100; O2SAT 97
[2024-07-31] MEDS: FLEXERIL 10 MG PO ×2 (13:09→21:46)
[2024-07-31 15:28] VITALS: BP 117/75
[2024-07-31] MEDS: SENOKOT-S 1 TABLET PO (16:10)
--- NOTE | 2024-07-31 16:27 | CM ---
ROBERT met with Adeola yesterday and again today - both times she was provided with the IMM and advised to call [place] for appeal since she did not agree with discharge.
Today she agreed to call T[facility]; advised ROBERT that she was told yesterday that she 'wasn't discharged until her discharge instructions were reviewed' with her. I explained to her today that she must call to appeal the discharge from Tuesday, as it
must be done timely, and the call should have been made yesterday.
Adeola was calling to appeal when I left her bedside today at 4:05pm.
ROBERT will f/u in am.
[2024-07-31] MEDS: LOVENOX 40 MG SC (17:58)
[2024-07-31 23:00] VITALS: BP 112/73
[2024-08-01] MEDS: TYLENOL PO ×2 (00:15→05:21)
--- NOTE | 2024-08-01 04:03 | DOWNTIME ---
There was a [employer] Downtime on 08/01/2024 from 0100 to 08/01/2024 at 0355. Downtime documentation of patient's care, including medication administrations, has been reconciled in the electronic record per guidelines. Refer to the
patient's paper chart under the miscellaneous tab to see printed paper medication records and downtime forms.
[2024-08-01] MEDS: ULTRAM 50 MG PO ×3 (05:41→19:29)
[2024-08-01 06:00] VITALS: BMI 21.9
[2024-08-01] MEDS: FLEXERIL 10 MG PO ×2 (06:11→16:35)
[2024-08-01 07:35] VITALS: BP 134/81
[2024-08-01] MEDS: TYLENOL 650 MG PO ×4 (08:19→19:28)
[2024-08-01] MEDS: SENOKOT-S 1 TABLET PO (08:19)
[2024-08-01] MEDS: PROTONIX 40 MG PO (08:19)
[2024-08-01] MEDS: NEURONTIN 100 MG PO ×3 (08:19→21:14)
[2024-08-01] MEDS: MIRALAX 17 GRAMS PO (08:20)
[2024-08-01] MEDS: GLYCERIN SUPPOSITORY ADULT 1 SUPP RECTAL (08:22)
--- NOTE | 2024-08-01 10:19 | W.PN.HOSP.TC ---
Addendum entered and electronically signed by Dong Lawson MD 08/01/24 10:56:
I saw and evaluated the patient. I reviewed the resident�s note and agree with findings and plan as documented in the resident�s note.
Patient reports no bowel movement since I saw her yesterday. States abdominal pain is improving.
Gen: NAD, AAOx3.
Eyes: EOMI, PERRLA, no scleral icterus.
Neck: supple.
CV: Continues to remain RRR, +S1/S2, no m/r/g.
Resp: Continues to remain CTAB, no rales, wheezes, or rhonchi.
Abd: +BS, soft, tender to moderate palpation, ND
Skin: No rashes.
Neuro: CN 2-12 intact, non-focal.
Psych: normal mood and affect
Cecal volvulus:
-s/p open R colectomy 07/21/[address] Burleson
-had bowel movement 07/27/24
-case discussed at length with CRS on 07/30/24, 07/31/24, and 08/01/24 and the patient remains medically cleared for discharge from their standpoint.
-no further IV narcotics will be given
-can consider starting cymbalta for FMS pain
-Continue neurontin (pt no longer refusing)
-cont bowel regimen
The patient was discharged on 07/30/24. At that time the patient stated she was going to appeal her discharge and call advanced. She did not call [facility] on 07/30/24 as instructed. She called [facility] on 07/31/24. The The patient remains medically
stable for discharge and the discharge order remains in place since 07/30/24.
Original Note:
Today's Communication/Plan
-
Patient medically and surgically optimised
plan discharge
Assessment / Plan
Assessment / Plan
74y F with PMH significant for GERD / HH s/p fundoplication, fibromyalgia and chronic pain post op for cecal volvolus
Cecal Volvulus
-S/p open R colectomy 07/21/[address] Burleson
- Had bowel movement 07/27.
-Patient shifted to regular diet
-Colorectal surgery consult appreciated--patient okay to discharge, recovery is going well
-General Surgery--cleared the patient for discharge reassured the patient that recovery is going well
-Optimize oral pain medications
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
Anxiety
-CRS ordered Ativan as needed
Hiatal Hernia s/p Tonio Fundoplication
Esophageal Stenosis
- Patient notes some recent issues with swallow dysfunction / food getting 'stuck'.
- Continue daily PPI, f/u w/ GI Dr. Lopez Do outpt
Fibromyalgia
Chronic opioid use with dependency
- Patient states this is managed with tramadol and cyclobenzaprine at home and wants to continue those in hospital.
- Not on any fibromyalgia-specific agents.
DVT prophylaxis�subcu Lovenox
Full code
Anticipated Discharge: Within 24 hours
Subjective/Interval History
-
Date of Service: August 01, 2024
No active issues, says pain is better today
Objective Data
-
Labs:
Laboratory Results
08/01/24
06:00
WBC Pending
Hgb Pending
Hct Pending
Plt Count Pending
Sodium Pending
Potassium Pending
Chloride Pending
Carbon Dioxide Pending
BUN Pending
Creatinine Pending
Glucose Pending
Calcium Pending
Vital Signs:
Vital Signs
Temp Pulse Resp BP Pulse Ox
98.1 F 80 18 134/81 97
08/01/24 07:35 08/01/24 07:35 08/01/24 07:35 08/01/24 07:35 08/01/24 07:35
I&O
10/08/01/24 08/02/24
06:59 06:59 06:59
Intake Total 840 / 840 1080 / 1080
Balance 840 / 840 1080 / 1080
Review of Systems
-
All other systems: Reviewed and negative
Physical Exam
-
General: Well Developed, Well Nourished, No Apparent Distress, Comfortable and Conversant
HEENT: [place] Conjunctivae and PERRLA
Respiratory: Clear to Auscultation
Cardiac: Regular Rhythm and S1/S2
GI: Soft, Normal Bowel Sounds and Tender (mild around incision site)
Genito-urinary: No Costovertebral Tender
Musculoskeletal: No Clubbing, No Cyanosis and No Edema
Skin: Warm and Dry
Neuro: Awake and Alert
Hematologic / Lymphatic: No Lymphadenopathy
Psych: Calm
--- NOTE | 2024-08-01 10:49 | CM ---
Addendum entered by Heather Bryant 08/01/24 16:34:
ROBERT met with Adeola at bedside multiple times today. [facility] appeal was not received. ROBERT sat with Adeola to complete [employer] Appeal this afternoon.
[facility] requested records which were sent via the [employer] portal including the Detailed notice of Discharge and the most recently signed IMM.
[facility] Case# [id number]
Await [facility] determination. Adeola is aware of status.
Original Note:
ROBERT met with Adeola this am to confirm that she had contacted [facility] for the discharge appeal. She had taken notes and reportedly called to appeal on 08/01/2024 at 6:15 PM. Adeola is ambulating in her room, bending over to lease picker items from the
floor. She does anticipate going home today.
CM to follow.
--- NOTE | 2024-08-01 10:51 | W.PN.CRS1 ---
Today's Communication / Plan
-
okay for discharge from our perspective
Assessment/Plan
-
POD#10 exploratory laparotomy with right colectomy and primary anastomosis
-Vitals normal.
-OOB with PT
-Continue a regular diet
-Ativan as needed for anxiety
-Teds and SCDs in place, Lovenox for DVT prophylaxis
-Pain control: Tylenol standing, Dilaudid PRN
-OR pathology pending
-Rectal suppository PRN
-Dr. Burleson discussed surgery with the patient at length. All questions answered. Okay for dc from our perspective. Follow up with Dr. Burleson in 1-2 weeks for staple removal.
Subjective Data
Procedure
/- Exploratory laparotomy with right colectomy and primary anastomosis.
Subjective Data
Date of Service: August 01, 2024
Patient states that she still has incisional pain. She has been eating without difficulty. She has had flatus. She states she has not had a bowel movement since her surgery however she did admit to a bowel movement on July 27 for a few days
ago. She has many questions about her surgery.
Objective Data
-
Vital Signs
Temp Pulse Resp BP Pulse Ox
98.1 F 80 18 134/81 97
08/01/24 07:35 08/01/24 07:35 08/01/24 07:35 08/01/24 07:35 08/01/24 07:35
Intake & Output
07/31/24 08/01/24 08/02/24
06:59 06:59 06:59
Intake Total 840 / 840 1080 / 1080
Balance 840 / 840 1080 / 1080
Intake:
Oral fluids 840 / 840 1080 / 1080
Other:
Number of approximated MODERATE 2
amounts of urine
Number of approximated LARGE 1
amounts of urine
Physical Exam
-
General: No Acute Distress and AOx3
Abdomen: Soft, Non Distended and Non Tender
Wound: Dressing Changed
Incision: Clear, Dry, Intact
[2024-08-01 12:56] LABS: % Basophils 0.5 % (0-2); % Immature Granulocytes 0.5 % (0-0.5); % Lymphocytes 27.8 % (20.5-51.1); % Neutrophils 58.2 % (42.2-75.2); Absolute Eosinophils 0.3 10^3/uL (0-0.7); Absolute Lymphocytes 1.2 10^3/uL (1.2-3.4); Absolute Monocytes 0.3 10^3/uL (0.1-0.6); Absolute Neutrophils 2.4 10^3/uL (1.4-6.5); Hematocrit 34.9 % (37.0-47.0); Hemoglobin 11.3 g/dL (12.0-16.0); Mean Corp Hgb Conc. 32.4 g/dL (33.0-37.0); Mean Corpuscular Hgb 30.9 pg (27.0-31.0); Mean Corpuscular Volume 95.4 fL (81.0-99.0); Mean Platelet Volume 8.6 fL (7.4-10.4); Nucleated Red Blood Cells % 0 %; Platelet Count 373 10^3/uL (130-400); Red Blood Cell Count 3.66 10^6/uL (4.20-5.40); Red Cell Dist. Width 13.7 % (11.5-14.5); White Blood Cell Count 4.2 10^3/uL (4.8-10.8)
[2024-08-01 13:09] LABS: Blood Urea Nitrogen 8 mg/dl (7-17); Calcium 9.6 mg/dl (8.4-10.2); Carbon Dioxide 29 mmol/L (22-30); Chloride 100 mmol/L (98-107); Estimated Creatinine Clearance 65 ml/min; Glucose 124 mg/dl (70-99); Sodium 144 mmol/L (135-145); eGFR > 60.00
[2024-08-01 15:25] VITALS: BP 141/70
[2024-08-01] MEDS: LOVENOX 40 MG SC (16:32)
[2024-08-01 23:47] VITALS: BP 142/83
[2024-08-02] MEDS: TYLENOL 650 MG PO ×4 (00:16→21:41)
[2024-08-02] MEDS: FLEXERIL 10 MG PO (00:35)
[2024-08-02] MEDS: ULTRAM 50 MG PO ×3 (02:55→21:42)
[2024-08-02 05:03] VITALS: BMI 22.4
[2024-08-02] MEDS: TYLENOL PO ×2 (05:47→16:29)
[2024-08-02 07:30] VITALS: BP 135/75
[2024-08-02] MEDS: GLYCERIN SUPPOSITORY ADULT RECTAL (08:48)
[2024-08-02] MEDS: SENOKOT-S 1 TABLET PO (08:48)
[2024-08-02] MEDS: MIRALAX 17 GRAMS PO (08:48)
--- NOTE | 2024-08-02 08:48 | W.PN.HOSP.TC ---
Today's Communication/Plan
-
see bold
Assessment / Plan
Assessment / Plan
Gen: NAD, AAOx3.
Eyes: EOMI, PERRLA, no scleral icterus.
Neck: supple.
CV: RRR, +S1/S2, no m/r/g.
Resp: CTAB, no rales, wheezes, or rhonchi.
Abd: +BS, soft, diffuse tenderness to mild palpation, ND
Skin: No rashes.
Neuro: CN 2-12 intact, non-focal.
Psych: normal mood and affect
Cecal volvulus:
-s/p open R colectomy 07/21/[address] Burleson
-had bowel movement 07/27/24
-case discussed at length with CRS on 07/30/24, 07/31/24, and 08/01/24 and the patient remains medically cleared for discharge from their standpoint.
-no further IV narcotics will be given
-can consider starting cymbalta for FMS pain after discharge
-increase neurontin to 200mg TID
-cont bowel regimen
Other problems:
Anxiety: Ativan PRN
Hiatal Hernia s/p Tonio Fundoplication
Esophageal Stenosis: cont PPI, outpt GI follow up
Fibromyalgia
Chronic opioid use with dependency: Patient states this is managed with tramadol and cyclobenzaprine at home and wants to continue those in hospital
FULL/Lovenox
The patient was discharged on 07/30/24. At that time the patient stated she was going to appeal her discharge and call [employer]. She did not call [employer] on 07/30/24 as instructed. On 08/01/24 the patient again did not call [employer] as instructed.
With case management present (as documented in the CM note) the patient called [employer] on 08/01/24. Case discussed with patient's nurse. Myself and nursing are noticing manipulative behavior and are concerned about whether the patient is being
truthful as to whether she has had a bowel movement yet. The patient remains medically stable for discharge and the discharge order remains in place since 07/30/24.
Anticipated Discharge: Today
Subjective/Interval History
-
Date of Service: August 02, 2024
Patient reports she has not had a bowel movement yet. Still complains of abdominal pain. Refuse Dulcolax suppository this morning.
Objective Data
-
Vital Signs:
Vital Signs
Temp Pulse Resp BP Pulse Ox
98.5 F 83 16 142/83 100
08/01/24 23:47 08/01/24 23:47 08/01/24 23:47 08/01/24 23:47 08/01/24 23:47
I&O
08/01/24 08/02/24 08/03/24
06:59 06:59 06:59
Intake Total 1080 / 1080 960 / 960
Balance 1080 / 1080 960 / 960
[2024-08-02] MEDS: PROTONIX 40 MG PO (08:49)
[2024-08-02] MEDS: NEURONTIN 100 MG PO (08:50)
--- NOTE | 2024-08-02 09:21 | CM ---
Late Entry for 08/01/24 at 3:45pm, Discharge order placed in on 07/30, pt made CM aware that she wanted to appeal the discharge , IMM reviewed along with number to [facility] to call to initiate an appeal by end of day 07/30 as that is the date the
discharge order was written for by her physician. On 07/31 no notice received from [facility] making us aware that the patient had initiated an appeal on 07/31, patient had stated she was not feeling well the evening of 07/30 so did not call. Patient
initiated a call to [facility] on 07/31 and told CM she had to leave a VM. On 08/01 no notice received from [facility] that an appeal had been initiated by the patient, call placed to [facility] on 08/01 to check to see if appeal was initiated. Per [facility]
they had no record of the a vm from this patient from 07/31. On 08/01 patient was made aware that [facility] had no record of her VM. Patient called [facility] in presence of CM. Notification was received from [facility] that an appeal was initiated and
requested information along with clinical was uploaded to [facility]'s portal. Since her request for an appeal did not occur before her planned discharge date and both hospitalist and surgeon were stating that she had been stable for discharge since
07/30 a Hospital-Issued Notice of Non-Coverage was given to patient at 3:45pm on 08/01. The form and the financial liability was explained to her with a potential date of financial liability starting on 08/02/24. Patient was made aware of this and
that by signing the form it was explained to her that it does not mean she was agreeing to it, just that she was made aware of the potential for financial liability starting on 08/02/24. Patient did sign form. It was explained to the patient that if
the [facility] Appeal came back agreeing with her than the Hospital-Issued Notice of Non-Coverage would be rescinded. The patient was also made aware if she changed her mind and wanted to be discharged to please let her nurse know.
[2024-08-02] MEDS: GLYCERIN SUPPOSITORY ADULT 1 SUPP RECTAL (12:01)
[2024-08-02 15:07] VITALS: BP 129/80
--- NOTE | 2024-08-02 15:09 | CM ---
clinical secretary told that [facility] has upheld the discharge and that patient must dc before 12 noon tomorrow.if she is not dc by 12 noon she will start paying the hospital bill.patient told me she is not happy with the decision since she has not had
a bm even though she was given laxatives to move her bowels.. she told me she missed a call from someone and they left a message to call the person back. i asked patient to call back since it may have been [facility] who called her.i asked her who
would pick her up and she said her roommate rizwana or she could call someone else. attending dr mullen and amira zhao aware of decison. dr mullen is asking if patient will need to pay hospitall bill starting delay in patient placing call to [facility].
Plan: dc home with [facility]
[2024-08-02] MEDS: NEURONTIN 200 MG PO ×2 (15:44→21:41)
[2024-08-02] MEDS: LOVENOX 40 MG SC (17:22)
[2024-08-02 23:29] VITALS: BP 138/75
[2024-08-03] MEDS: TYLENOL 650 MG PO ×2 (01:32→08:55)
[2024-08-03] MEDS: ZOFRAN 4 MG IV (01:32)
[2024-08-03] MEDS: TYLENOL PO ×2 (05:04→13:15)
[2024-08-03 06:00] VITALS: BMI 22.7
[2024-08-03 07:50] VITALS: BP 117/78
[2024-08-03] MEDS: SENOKOT-S 1 TABLET PO (08:55)
[2024-08-03] MEDS: NEURONTIN 200 MG PO (08:56)
[2024-08-03] MEDS: GLYCERIN SUPPOSITORY ADULT 1 SUPP RECTAL (08:56)
[2024-08-03] MEDS: PROTONIX 40 MG PO (08:56)
[2024-08-03] MEDS: MIRALAX 17 GRAMS PO (08:57)
--- NOTE | 2024-08-03 08:57 | W.PN.HOSP.TC ---
Today's Communication/Plan
-
Patient remains medically and surgically cleared for discharge since 07/[address] since 07/30
Assessment / Plan
Assessment / Plan
IMPRESSION
74y F with PMH significant for GERD / HH s/p fundoplication, fibromyalgia and chronic pain post op for cecal volvolus
ASSESSMENT AND PLAN
Cecal Volvulus
-S/p open R colectomy 07/21/[address] Burleson
-Colorectal surgery consult appreciated--patient okay to discharge, recovery is going well
-General Surgery--cleared the patient for discharge reassured the patient that recovery is going well
PATIENT DISCHARGED ON 07/30
Manipulative behavior observed by physicians and nurses
Discussed with caser
Patient remains medically and surgically cleared for discharge since 07/30
OTHERS
Hiatal Hernia s/p Tonio Fundoplication
Esophageal Stenosis
- Patient notes some recent issues with swallow dysfunction / food getting 'stuck'.
- Continue daily PPI, f/u w/ GI Dr. Lopez Do outpt
Fibromyalgia
Chronic opioid use with dependency
- Patient states this is managed with tramadol and cyclobenzaprine at home and wants to continue those in hospital.
- Not on any fibromyalgia-specific agents.
DVT prophylaxis�subcu Lovenox
Full code
Anticipated Discharge: Within 24 hours
Subjective/Interval History
-
Date of Service: August 03, 2024
No active issues
Objective Data
-
Vital Signs:
Vital Signs
Temp Pulse Resp BP Pulse Ox
98 F 86 16 117/78 97
08/03/24 07:50 08/03/24 07:50 08/03/24 07:50 08/03/24 07:50 08/03/24 07:50
I&O
08/02/24 08/03/24 08/04/24
06:59 06:59 06:59
Intake Total 960 / 960 480 / 480
Balance 960 / 960 480 / 480
Review of Systems
-
All other systems: Reviewed and negative
Physical Exam
-
General: Well Developed, Well Nourished and No Apparent Distress
HEENT: Normocephalic, Atraumatic and Moist Mucous Membranes
Respiratory: Clear to Auscultation
Cardiac: Regular Rhythm and S1/S2
GI: Soft, Nontender, Nondistended and Normal Bowel Sounds
Genito-urinary: No Costovertebral Tender
Musculoskeletal: No Clubbing, No Cyanosis and No Edema
Skin: Warm and Dry
Neuro: Awake, Alert and Oriented
Hematologic / Lymphatic: No Lymphadenopathy
Psych: Calm
--- NOTE | 2024-08-03 09:01 | VNURNOTE ---
Spoke with patient over the phone. Confirmed she still agrees to receive [facility] services. Informed her a [facility] nurse will contact her within a day or two after DC. Patient in agreement. [facility] referral accepted in [facility].
[2024-08-03] MEDS: ULTRAM 50 MG PO (09:06)
[2024-08-03] MEDS: FLEXERIL 10 MG PO (09:06)
--- NOTE | 2024-08-03 09:22 | W.PN.UPDATE ---
Update Note
Progress Note Update
I saw and evaluated the patient. I reviewed the resident�s note and agree with findings and plan as documented in the resident�s note.
Patient seen while exiting the bathroom. She reports that she is upset that she is still not had a bowel movement. She is asking who will manage the problem of her not having a bowel movement.
Gen: NAD, AAOx3.
Eyes: EOMI, PERRLA, no scleral icterus.
Neck: supple.
CV: remains RRR, +S1/S2, no m/r/g.
Resp: remains CTAB, no rales, wheezes, or rhonchi.
Abd: +BS, soft, diffuse tenderness to mild palpation, ND
Skin: No rashes.
Neuro: CN 2-12 intact, non-focal.
Psych: normal mood and affect
Cecal volvulus:
-s/p open R colectomy 07/21/[address] Burleson
-had bowel movement 07/27/24
-case discussed at length with CRS on 07/30/24, 07/31/24, and 08/01/24 and the patient remains medically cleared for discharge from their standpoint.
-no further IV narcotics will be given
-can consider starting cymbalta for FMS pain after discharge
-neurontin has been increased to 200mg TID
-cont bowel regimen
Other problems:
Anxiety: Ativan PRN
Hiatal Hernia s/p Tonio Fundoplication
Esophageal Stenosis: cont PPI, outpt GI follow up
Fibromyalgia
Chronic opioid use with dependency: Patient states this is managed with tramadol and cyclobenzaprine at home and wants to continue those in hospital
FULL/Lovenox
The patient was discharged on 07/30/24. At that time the patient stated she was going to appeal her discharge and call [employer]. She did not call [employer] on 07/30/24 as instructed. On 08/01/24 the patient again did not call [employer] as instructed.
With case management present (as documented in the CM note) the patient called [employer] on 08/01/24. Case discussed with patient's nurse on 08/02/24. Myself and nursing were noticing manipulative behavior and were concerned about whether the
patient is being truthful as to whether she had had a bowel movement yet. On 08/02/24 [facility] upheld/agreed with the discharge decision. The patient remains medically stable for discharge and the discharge order remains in place since 07/30/24.
Total time spent on d/c = 31 min. This included today's physical exam, progress note, review of laboratory and diagnostic data, preparation of discharge documents and prescriptions, and discussions about the pt's hospital course and discharge plan
with the patient and other medical reception specialist involved in the patient's care.
[2024-08-03 11:07] VITALS: BP 122/76
--- NOTE | 2024-08-03 11:31 | CM ---
ROBERT met with patient this am to confirm she has a ride available for discharge by 12 noon. Adeola confirmed that her roommate will pick her up today. She advised that she ordered a PB&J and a hot tea and would like to have that prior to leaving. She
is eating currently with plan to leave when her roomate arrives.
Plan: Discharge to home with VN.
== END 2024-08-03 14:07 | disposition home health service (06) | DRG 330 ==
LOC: 4 EAST ACU 04:14
PROVIDERS: Family Medicine; Physician Assistant; ADMITTING PHYSICIAN Hospitalist; ATTENDING PHYSICIAN Internal Medicine; CONSULT PHYSICIAN Surgery; EMERGENCY PHYSICIAN Student in an Organized Health Care Education/Training Program
PROC: 0DTJ0ZZ Resection of Appendix, Open Approach (ICD-10-PCS; 2024-07-21)
PROC: 0DTF0ZZ Resection of Right Large Intestine, Open Approach (ICD-10-PCS; 2024-07-21)
DX: K56.2 Volvulus (principal); F11.20 Opioid dependence, uncomplicated; I69.398 Other sequelae of cerebral infarction; K38.8 Other specified diseases of appendix; K22.2 Esophageal obstruction; K44.9 Diaphragmatic hernia without obstruction or gangrene; E78.5 Hyperlipidemia, unspecified; G89.29 Other chronic pain; M79.7 Fibromyalgia; K21.9 Gastro-esophageal reflux disease without esophagitis; M51.369 Other intervertebral disc degeneration, lumbar region without mention of lumbar back pain or lower extremity pain; M62.838 Other muscle spasm; M21.332 Wrist drop, left wrist; R53.1 Weakness; K59.03 Drug induced constipation; T40.2X5A Adverse effect of other opioids, initial encounter; Z98.890 Other specified postprocedural states; Z79.899 Other long term (current) drug therapy; Z87.19 Personal history of other diseases of the digestive system; Z88.5 Allergy status to narcotic agent
CPT/HCPCS: 88307; 74019; 74177; 80048; 80053; 83605; 83690; 83735; 84100; 84484; 85025; 85027; 93005; 96361; 96374; 96375; 96376; 97116; 97163; 97167; 97530; 97535; 99285; C1776; J1335; Q9967

== ENCOUNTER 2024-09-06 08:27 | Emergency (ER) | payer MEDICARE, OTHER, SELFPAY ==
[2024-09-06 08:33] VITALS: BP 141/80
--- NOTE | 2024-09-06 08:39 | ED.GENMED ---
History of Present Illness
General
Chief Complaint: Fall
Time Seen by Provider: 09/06/24 08:39
History of Present Illness
History of Present Illness:
TIME OF INITIAL ENCOUNTER: 8:45 AM
HPI: Last evening approximately 15 hours ago, while at [facility], the patient tripped and fell over a parking block in the parking lot. She struck the right side of her head and has a rather large hematoma. She did not want to go to the hospital last
night. Her partner encouraged her to come in here today for further evaluation. She also struck her knees but has minimal pain and is able to bear weight without any significant difficulty.
EXAM:
GENERAL: Well appearing in no distress
CERVICAL SPINE: No midline c-spine tenderness with excellent AROM
HEAD: Rather large right forehead hematoma with no significant bony tenderness in the infraorbital region, very superficial lacerations that do not require repair near the right/superior aspect of the nose
CHEST: No chest wall tenderness, normal heart sounds
LUNGS: Equal lung sounds, no respiratory distress
ABDOMEN: Minimal abdominal tenderness that she relates to prior fairly recent surgery, no peritoneal signs
EXTREMITIES: Normal active range of motion, no tenderness
NEURO: Excellent strength all extremities, appropriate mental status, normal speech/language
NUMBER AND COMPLEXITY OF PROBLEMS ADDRESSED AT THE ENCOUNTER
� Chronic conditions affecting care: Seizure disorder, GERD, hyperlipidemia
� Acute Exacerbation and/or Progression of Chronic Illness: This is an acute problem
� Differential Diagnosis includes: Intracranial hemorrhage, concussion, hematoma
AMOUNT AND/OR COMPLEXITY OF DATA TO BE REVIEWED AND ANALYZED
� I performed an independent evaluation of and my interpretation is:
EKG:
CT: CT imaging of the brain shows the right sided forehead hematoma but no intracranial abnormality
X-rays:
Laboratory Studies:
Other:
� Review of other/old records: The patient was admitted here 1 month ago after she had right sided colectomy due to cecal volvulus
� Clinical information was obtained by an independent historian: I spoke to the patient partner at bedside
� Prescriptions/Medications Considered but not given: Declined Tylenol
� Further testing considered but not performed:
RISK OF COMPLICATIONS AND/OR MORBIDITY OR MORTALITY OF PATIENT MANAGEMENT
� Social determinants of health affecting care: Lives at home with partner
� Discussion with other providers:
� Escalation of care including admission/observation vs risk of discharge considered: Given patient's age along with rather significant sign of right-sided forehead trauma, will obtain CT imaging of the brain
ANY OTHER UPDATES:
9:55 AM: I reassessed patient, no new abnormalities. Offered ice but patient states that ice makes her fibromyalgia worse
Past History
Past History
ED Past Medical History: CVA (Slight left hand weakness), Fibromyalgia, GERD, Hypercholesterolemia, Seizures and Other (DVT, dysphagia, very large hiatal hernia, nephrolithiasis, anemia, chickenpox, measles)
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 Hernia repair, left breast lumpectomy 1999, hernia repair)
Patient has exhibited threatening behavior?: No
PSI?: No
Social History
Tobacco: Non-smoker
Alcohol: None
Drug: None
Personal: Single
Living: alone
Employment: Disabled
Family History
Family History: Other (Reviewed and noncontributory)
Phy Exam
Physical Exam
Physical Exam:
See HPI
Course
Orders/Labs/Results
Orders:
Orders
09/06/24 08:44
CT Head W/o Iv Contrast Urgent
Comment:
Reason For Exam: head trauma R foreahead hematoma 15hrs ago
Vital Signs
Initial and Last Documented VS:
Initial Vital Signs
Temp Pulse Resp BP Pulse Ox
37.1 C 90 16 141/80 98
09/06/24 08:33 09/06/24 08:33 09/06/24 08:33 09/06/24 08:33 09/06/24 08:33
Last Documented Vital Signs
Temp Pulse Resp BP Pulse Ox
37.1 C 90 16 141/80 98
09/06/24 08:33 09/06/24 08:33 09/06/24 08:33 09/06/24 08:33 09/06/24 08:33
*Critical Care Note
Total Time (30-74mins, 75-104mins- exclusive of procedures): Not Applicable
ED Attending Note
-
Portions of this chart may have been created with voice recognition software.� Occasional wrong word or��sound alike� substitutions may have occurred due to the inherent limitations of voice recognition software.
Discharge Plan
Departure
Patient Disposition: Home (Routine Discharge)
Date of Disposition: 09/06/24
Time of Disposition: 09:52
Patient with high blood pressure during this ER visit?: Yes
Discharge Problem:
Head injury
Instructions: Head Injury in Adults (DC), BLOOD PRESSURE, Hematoma
Prescriptions:
No Action
rosuvastatin 20 mg Tablet
40 mg PO QPM Qty: 60 0RF
cyclobenzaprine 5 mg Tablet
10 mg PO TID
pantoprazole 40 mg Tablet,Delayed Release (Dr/Ec)
40 mg PO DAILY
acetaminophen 325 mg Tablet
650 mg PO Q4HWA 30 Days Qty: 360 0RF
polyethylene glycol 3350 [HealthyLax] 17 gram Powder In Packet
17 g PO DAILY 30 Days Qty: 30 0RF
sennosides-docusate sodium 8.6-50 mg Tablet
1 tab PO DAILYPRN PRN (Reason: opioid induced constipation) 30 Days Qty: 30 0RF
gabapentin 100 mg Capsule
100 mg PO TID 30 Days Qty: 90 0RF
docusate sodium 100 mg Capsule
100 mg PO BID Qty: 0 0RF
oxycodone 5 mg Tablet
5 mg PO Q4HPRN PRN (Reason: moderate pain) Qty: 6 0RF
tramadol 50 mg Tablet
50 mg PO Q6H
Activity Restrictions/Additional Instructions:
The CAT scan of the brain shows the hematoma on the forehead but shows no internal bleeding. Return here if worse or other concerns.
Interventions
Interventions:
*Risk Screen - Suicide Last Done: 09/06/24 08:33
*General Assessment Last Done: 09/06/24 09:10
*Neglect/Abuse Screening Last Done: 09/06/24 08:33
ED- Fall Risk Assessment Last Done: 09/06/24 09:21
*ED COVID-19 Vaccine History Last Done: 09/06/24 09:10
ED-Musculoskeletal Assessment Last Done: 09/06/24 09:10
ED- Neurological Assessment Last Done: 09/06/24 09:10
ED-Skin Assessment Last Done: 09/06/24 09:10
Discharge Date and Time
Print Language: LATVIAN
== END 2024-09-06 10:30 | disposition home or self-care (01) ==
LOC: EMR 08:27
PROVIDERS: EMERGENCY PHYSICIAN Emergency Medicine; FAMILY PHYSICIAN Family Medicine
DX: S00.83XA Contusion of other part of head, initial encounter (principal); W18.09XA Striking against other object with subsequent fall, initial encounter; M79.7 Fibromyalgia; E78.00 Pure hypercholesterolemia, unspecified; I69.934 Monoplegia of upper limb following unspecified cerebrovascular disease affecting left non-dominant side; Z86.718 Personal history of other venous thrombosis and embolism
CPT/HCPCS: 99284; 70450

== ENCOUNTER 2024-10-04 14:52 | Day surgery (SDC) | payer MEDICARE, OTHER, SELFPAY | END 2024-10-04 15:08 | disposition home or self-care (01) | LOC: GI 14:52 | PROVIDERS: ATTENDING PHYSICIAN Surgery | DX: K44.9 Diaphragmatic hernia without obstruction or gangrene (principal); K22.89 Other specified disease of esophagus; R13.10 Dysphagia, unspecified; Z92.89 Personal history of other medical treatment | CPT/HCPCS: 43249 ==